=== PATIENT | female | born 1965 | race Caucasian/White ===

== ENCOUNTER 2021-10-23 15:11 | Inpatient (IN) | payer MEDICARE, MEDICAID, SELFPAY ==
--- NOTE | ~2021-10-23 | XR_ITS ---
EXAMINATION: XR FOOT, LEFT CLINICAL INFORMATION: Left foot pain COMPARISON: None TECHNIQUE: 3 views of the left foot. FINDINGS: The bones and soft tissues are normal. No fracture, erosion or periostitis. Alignment is anatomic. Joint spaces are maintained. No radiopaque foreign body or abnormal soft tissue calcification. XR/XR foot LT min 3V IMPRESSION: Normal left foot.
[2021-10-23 15:22] VITALS: BP 124/86; BP 135/63; PULSE 80; PULSE 84; RESP 18; TEMP 37.3; O2SAT 99; BMI 24.2
--- NOTE | 2021-10-23 16:00 | ED_ITS ---
HPI - Psych General Chief Complaint: Psychiatric Symptoms Stated Complaint: CRISIS,FROM [facility] W/SECTION 12 Source: patient Mode of arrival: ambulatory Limitations: no limitations History of Present Illness HPI Narrative: 56-year-old female history of depression presents to the ED for depression and suicidal ideation. Patient states due to her depression she has not been able to go to work. Patient states she is too depressed to go to work. Patient states also having suicidal ideation but no plan. Patient states she is compliant with her psychiatric medication but they are not helping. Related Data Home Medications Medication Instructions Recorded Confirmed bupropion HCl 150 mg 24 hr tablet, 150 mg PO QAM 10/23/21 10/23/21 extended release hydroxyzine HCl 25 mg tablet 25 mg PO BID PRN 10/23/21 10/23/21 quetiapine 50 mg tablet 50 mg PO BEDTIME 10/23/21 10/23/21 quetiapine 50 mg tablet 50 mg PO DAILY PRN 10/23/21 10/23/21 Allergies Allergy/AdvReac Type Severity Reaction Status Date / Time No Known Allergies Allergy Verified 10/23/21 17:36 Review of Systems Review of Systems: depression and suicidal Yes all other systems are reviewed and are negative [facility] Social History Social History Advance Directives: No Advance Directives Information Provided: No Physical Exam Vital Signs: Vital Signs: Last Vital Signs Temp 99.2 F 10/23/21 15:22 Pulse 80 10/23/21 15:22 Resp 18 10/23/21 15:22 BP 135/63 10/23/21 15:22 Pulse Ox 99 10/23/21 15:22 BMI result Body Mass Index 24.2 Const: General: cooperative, healthy appearing, comfortable, no acute distress, well developed, alert, awake and Physically active; No acute distress Orientation/consciousness: oriented to time and patient oriented x3 HEENT: Head: Yes normal to inspection, Yes No palpable skull fracture present, Yes normocephalic, Yes atraumatic and No abrasion Eyes: General: appearance normal, both eyes and all related structures Neck: Neck: Yes normal visual inspection, Yes full ROM, Yes no lymphadenopathy, Yes no meningeal signs, Yes trachea midline, Yes supple, No anterior neck swelling and No tender Chest: Chest palpation & inspection: normal inspection of the chest and normal palpation of entire chest wall Resp: Effort & Inspection: normal respiratory effort and able to speak in complete sentences Auscultation: clear to auscultation bilaterally Cardio: Jugular venous distension: no JVD Heart sounds: S1 normal heart sound present and S2 normal heart sound present GI: Inspection: Yes normal to inspection and No abdominal wall ecchymosis Palpation (GI): Soft to palpation, not firm, nontender, no guarding and not rigid : General: No CVA tenderness and Yes no CVA tenderness Back/Spine/Pelvis: Back: no CVA tenderness, No CVA tenderness and No back tenderness Skin: General skin exam: no rashes or lesions noted and elasticity normal Neuro: General: oriented to time, patient oriented x3, gait normal, no meningeal signs and CN's II-XI intact bilaterally Cranial nerves: Yes CN's II-XII intact bilaterally Extrem: General: Yes normal to inspection and Yes full ROM Psych: Appearance: grossly normal, well kempt and not disheveled Course Course Course Narrative: patient brought here under Section 12 for woken from pressure med is seen and the immediately. Reevaluation(s) Reevaluation #1: patient awaiting lab evaluation. Patient waiting [facility] evaluation. Time: 17:41 [facility] - Psych Lab Data Labs: Lab Results 10/23/21 10/23/21 Range/Units 16:05 16:06 Urine Opiates Screen Not Detected (Not Detect) Urine Fentanyl Screen Not Detected (Not Detect) Ur Barbiturates Screen Not Detected (Not Detect) Ur Phencyclidine Scrn Not Detected (Not Detect) Ur Amphetamines Screen Not Detected (Not Detect) U Benzodiazepines Scrn Not Detected (Not Detect) Urine Cocaine Screen Not Detected (Not Detect) U Marijuana (THC) Screen Not Detected (Not Detect) COVID-19 ([facility]) Negative (Negative) COVID-19 Clin Com See Note Discharge Plan Discharge Clinical Impression: Depression Patient Disposition: Still a Patient Prescriptions: No Action hydroxyzine HCl 25 mg Tablet 25 mg PO BID PRN (Reason: Anxiety) 0RF bupropion HCl 150 mg Tablet Extended Release 24 Hr 150 mg PO QAM 0RF quetiapine 50 mg Tablet 50 mg PO BEDTIME 0RF Rx Instructions: take 1-2 tabs at bedtime quetiapine 50 mg Tablet 50 mg PO DAILY PRN (Reason: Anxiety) 0RF
[2021-10-23 16:28] LABS: Amphetamine Screen Urine Not Detected (Not Detect); Barbiturates, Urine Not Detected (Not Detect); Benzodiazepines Screen Urine Not Detected (Not Detect); Cannabinoid Screen Urine Not Detected (Not Detect); Cocaine Screen Urine Not Detected (Not Detect); Fentanyl, urine Not Detected (Not Detect); Opiate Screen Urine Not Detected (Not Detect); Phencyclidine Screen Urine Not Detected (Not Detect)
[2021-10-23 16:29] LABS: COVID-19 Test Negative (Negative)
[2021-10-23 17:55] LABS: MANUAL DIFF FLAG NO
[2021-10-23 17:59] LABS: Basophils Percent Auto 0.5 % (0-2); Eosinophils Absolute Auto 0.1 X10*3/uL (0.0-0.4); Eosinophils Percent Auto 0.8 % (0-4); Hematocrit 44.9 % (37.0-47.0); Hemoglobin 15.3 g/dl (12.0-16.0); Imm Gran Abs Auto 0.02 X10*3/uL (0.00-0.03); Imm Gran Pct Auto 0.2 % (0.0-0.4); Lymphocytes Absolute Auto 2.4 X10*3/uL (1.2-4.9); Lymphocytes Percent Auto 28.7 % (20-40); Mean Corpuscular HGB Conc 34.1 g/dl (31.0-35.0); Mean Corpuscular Hemoglobin 31.2 pg (27.0-33.0); Mean Corpuscular Volume 91.6 fL (80.0-98.0); Mean Platelet Volume 9.6 fL (9.4-12.3); Monocytes Absolute Auto 0.4 X10*3/uL (0.1-1.2); Monocytes Percent Auto 5.2 % (2-11); Neutrophils Absolute Auto 5.3 x10*3/uL (2.0-8.3); Neutrophils Percent Auto 64.6 % (45-73); Platelet Count 292 X10*3/uL (160-400); Red Cell Distribution Width 11.5 % (11.0-16.0); White Blood Count 8.3 X10*3/uL (4.8-10.8)
[2021-10-23 18:09] LABS: Ethanol < 10 mg/dL
[2021-10-23 18:11] LABS: Alanine Aminotransferase 19 U/L (0-31); Albumin Level 4.6 g/dL (3.5-5.0); Alkaline Phosphatase 78 U/L (39-117); Anion Gap 12 (12-20); Aspartate Amino Transferase 17 U/L (5-31); Bilirubin Total 0.7 mg/dL (0.0-1.0); Blood Urea Nitrogen 14 mg/dL (9-16); Calcium 10.3 mg/dL (8.4-10.2); Carbon Dioxide 30 mmol/L (22-29); Chloride 101 mmol/L (96-108); Creatinine Clr Calc Pharmacy 71.7; Estimated Glomerular Filt Rate > 60; Glucose Random 135 mg/dL (60-115); Sodium 139 mmol/L (135-145); Total Protein 7.6 g/dL (6.5-8.0)
[2021-10-23] MEDS: QUEtiapine Fumarate 50 MG TABLET PO (20:52)
--- NOTE | 2021-10-24 | ECG_ITS ---
Test Reason : MED CLEARANCE Blood Pressure : / mmHG Vent. Rate : 077 BPM Atrial Rate : 077 BPM P-R Int : 198 ms QRS Dur : 070 ms QT Int : 350 ms P-R-T Axes : 079 100 049 degrees QTc Int : 396 ms Normal sinus rhythm Rightward axis Borderline ECG No previous ECGs available Referred By: Deven Gutierrez Electronically Signed By:Teo Sierra
[2021-10-24 06:36] VITALS: BP 117/63; PULSE 74; RESP 16; TEMP 36.7; O2SAT 96
--- NOTE | 2021-10-24 06:39 | PC.NURSE ---
Patient slept through the night, no distress observed/reported, medication compliant, Disposition per [facility] is section 12 Inpatient Bed Search, behavior pleasant and non concerning, VSS, will continue to monitor
[2021-10-24 08:13] VITALS: BP 117/65; PULSE 73; RESP 17; O2SAT 97
[2021-10-24] MEDS: buPROPion HCl XL 150 MG TAB.ER.24H PO (08:31)
[2021-10-24 19:23] VITALS: BMI 23.8
[2021-10-24 19:30] VITALS: BP 126/73; PULSE 94; TEMP 37
[2021-10-24] MEDS: Acetaminophen 325 MG TABLET 650 MG PO (21:31)
[2021-10-24] MEDS: QUEtiapine Fumarate 50 MG TABLET PO ×2 (21:49→21:50)
[2021-10-25 06:00] VITALS: BP 114/62; PULSE 78; RESP 16; TEMP 36.8; O2SAT 98
[2021-10-25] MEDS: buPROPion HCl XL 150 MG TAB.ER.24H PO (09:08)
[2021-10-25 10:29] LABS: Magnesium 2.2 mg/dL (1.6-2.6)
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
[2021-10-25 10:41] LABS: Free T4 (Free Thyroxine) 0.95 ng/dL (0.71-1.85); Thyroid Stimulating Hormone 1.35 uIU/mL (0.32-4.0)
[2021-10-25 11:01] LABS: Folate 13.6 ng/mL (> or = 4.0); Vitamin B12 874 pg/mL (200-900)
[2021-10-25 18:00] VITALS: BP 104/61; PULSE 79; RESP 16; TEMP 36.9; O2SAT 98
[2021-10-25] MEDS: QUEtiapine Fumarate 50 MG TABLET PO (21:23)
[2021-10-25] MEDS: traZODone HCL 50 MG TABLET PO (21:24)
[2021-10-26 06:00] VITALS: BP 126/74; PULSE 88; RESP 14; TEMP 36.8; O2SAT 96
[2021-10-26] MEDS: buPROPion HCl XL 300 MG TAB.ER.24H PO (09:25)
--- NOTE | 2021-10-26 10:42 | HO.PSYCHPN ---
Subjective Subjective Date of Service: 10/26/21 Reason For Visit: Depression,SI Interim History: Patient stayed in bed all day today and reports she does not have much energy and remains depressed. She does not notice any benefit or side effect from increased dose of Wellbutrin and agrees to further increase. She remains very ambivalent about T MS but is willing to continue and considerate. She also talked about discharge today not really wanted to be in the hospital. She shared how hard it is to not have a job and to struggle against Her depression. She says I want help with the house And explains that she Does not want to leave the house and go on public, because she is embarrassed she does not have a job. Chain Saw Mechanic strongly encouraged patient to remain on the unit and continue treatment since at this point she remains depressed to the point where it is difficult for her to function. Patient said she will consider Mental Status Exam Mental Status Exam Narrative: Pt is alert and oriented; behavior is cooperative, distracted, slow moving; patient is not in distress; dressed in casual attire with unkempt hair but adequate hygiene; mood is described as depressed and affect congruent, downcast; avoids eye contact; Speech is lowered rate and softer volume; psychomotor retardation present; thought process is goal directed but can be a little tangential and a little disorganized; Thought content is on how hard? life is now with worse depression, difficulty of ever getting another job and tx; TC mostly otherwise pertinent to relevant topics; no overt delusional content or paranoid ideations or grandiosity expressed; Intermittent, passive SI; no HI. There is no evidence of perceptual disturbance and denies AVH;? Patients insight and judgment are impaired. Diagnostics Vital Signs (24Hr): Vital Signs - 24 hr 10/25/21 18:00 Temperature 98.4 F Pulse Rate 79 Respiratory Rate 16 Blood Pressure 104/61 Pulse Oximetry 98 BMI result Body Mass Index 23.8 Labs Results: 10/23/21 17:50 10/23/21 17:50 Labs: Laboratory Results - last 48 hr 10/25/21 10/25/21 08:04 08:04 Magnesium 2.2 Vitamin B12 874 Folate 13.6 TSH 1.35 Free T4 0.95 Medications Medications Current Medications Acetaminophen (Acetaminophen 325 Mg Tablet) 650 mg PO Q6H PRN PRN Reason: Headache/Pain Mild Scale (1-3) Last Admin: 10/24/21 21:31 Dose: 650 mg Documented by: Al Hydroxide/Mg Hydroxide (Magnesium Hydrox/Alum Hydrox 30 Ml Oral.Susp) 30 ml PO Q6H PRN PRN Reason: Heartburn/Nausea Bupropion HCl (Bupropion Hcl Xl 300 Mg Tab.Er.24h) 300 mg PO DAILY LANDY Last Admin: 10/26/21 09:25 Dose: 300 mg Documented by: Hydroxyzine HCl (Hydroxyzine Hcl 25 Mg Tablet) 25 mg PO BID PRN PRN Reason: Anxiety Magnesium Hydroxide (Milk Of Magnesia 30 Ml Oral.Susp) 30 ml PO DAILY PRN PRN Reason: Constipation Quetiapine Fumarate (Quetiapine Fumarate 50 Mg Tablet) 50 mg PO BEDTIME LANDY Last Admin: 10/25/21 21:23 Dose: 50 mg Documented by: Quetiapine Fumarate (Quetiapine Fumarate 50 Mg Tablet) 50 mg PO DAILY PRN PRN Reason: Anxiety Trazodone HCl (Trazodone Hcl 50 Mg Tablet) 50 mg PO BEDTIME PRN PRN Reason: Insomnia Last Admin: 10/25/21 21:24 Dose: 50 mg Documented by: Allergies Allergies Allergy/AdvReac Type Severity Reaction Status Date / Time No Known Allergies Allergy Verified 10/23/21 17:36 Assessment & Plan Assessment & Plan (1) MDD (major depressive disorder), recurrent episode, severe: Status: Acute Code(s): F33.2 - Major depressive disorder, recurrent severe without psychotic features Plan Patient is a 56-year-old female with long history of refractory depression, poorly treated with past medication trials who presents for worsening depression in the face of her mother going to a skilled nursing. Patient is a bit of a scattered historian. Formulation: -patient reports depression for decades which she says has never been treated very well with medication. She currently presents as severely depressed with psychomotor retardation. Patient has some minimal support in the community including a therapist. Regarding family psychiatric history patient says that her father was very quiet which leans towards possible genetic contribution. Patient's thought process is a little distracted and she sometimes brings up thoughts unrelated to public relations writer's question; at this time, public relations writer interprets this as due to diminished concentration, distractedness and negative symptoms of depression Plan: CV; 3 day notice in Q 15 minute checks Increased to Wellbutrin XL to 450mg daily; Patient agrees and has tolerated lower doses; wants to see if this can work or not Continue Seroquel 50 mg q.h.s. TMS consult placed with Dr. [facility] course: 10/26 Patient remains depressed and has been in bed all day. Agrees to increased Wellbutrin and will still consider T MS. She is it ambivalent about all treatment however and talks about discharging tomorrow Past medication trials: Zoloft Trazodone Paxil: Patient reports horrible delirium when getting off it Celexa Maybe Cymbalta Maybe Effexor Never tried: [employer], mirtazapine, TCAs, MAOI's, ECT, TMS, I spent minutes with the patient and/or on the patient floor today, greater than?50% of which was spent counseling/coordinating care. Patient educated on: diagnosis and medication risk/benefits Informed Consent: understands Reason for contiued inpatient stay Substantial Risk for: rapid decompensation and med/psych decompensation
[2021-10-26 18:00] VITALS: BP 106/56; PULSE 79; TEMP 36.9; O2SAT 96
[2021-10-26] MEDS: QUEtiapine Fumarate 50 MG TABLET PO (20:52)
[2021-10-26] MEDS: traZODone HCL 50 MG TABLET PO (20:52)
--- NOTE | 2021-10-27 | ECG_ITS ---
Test Reason : ect prep Blood Pressure : / mmHG Vent. Rate : 081 BPM Atrial Rate : 081 BPM P-R Int : 204 ms QRS Dur : 076 ms QT Int : 344 ms P-R-T Axes : 014 095 024 degrees QTc Int : 399 ms Normal sinus rhythm Rightward axis Borderline ECG When compared with ECG of 24-OCT-2021 16:15, No significant change was found Referred By: Abiodun Green Electronically Signed By:Teo Sierra
[2021-10-27 06:00] VITALS: BP 98/55; PULSE 78; RESP 14; TEMP 36.6; O2SAT 97
[2021-10-27] MEDS: buPROPion HCl XL 150 MG TAB.ER.24H 450 MG PO (08:33)
--- NOTE | 2021-10-27 10:37 | HO.PSYCHPN ---
Subjective Subjective Date of Service: 10/27/21 Reason For Visit: Depression,SI Interim History: Patient remains depressed and isolating in her room. Does not notice any difference from increased Wellbutrin; patient is open to ECT and agrees to pursue this course of treatment.. Denies SI. Mental Status Exam Mental Status Exam Narrative: Pt is alert and oriented; behavior is cooperative, distracted, slow moving; patient is not in distress; dressed in casual attire with unkempt hair but adequate hygiene; mood is described as depressed and affect congruent, downcast; avoids eye contact; intermittent grimace. Speech is lowered rate and softer volume; psychomotor retardation present; thought process is goal directed but can be a little tangential and a little disorganized; Thought content is on how hard? life is now with worse depression, difficulty of ever getting another job and tx; TC mostly otherwise pertinent to relevant topics; no overt delusional content or paranoid ideations or grandiosity expressed; Intermittent, passive SI; no HI. There is no evidence of perceptual disturbance and denies AVH;? Patients insight and judgment are impaired. Diagnostics Vital Signs (24Hr): Vital Signs - 24 hr 10/26/21 18:00 10/27/21 06:00 Temperature 98.5 F 97.9 F Pulse Rate 79 78 Respiratory Rate 14 Blood Pressure 106/56 L 98/55 L Pulse Oximetry 96 97 BMI result Body Mass Index 23.8 Labs Results: 10/23/21 17:50 10/23/21 17:50 Labs: Laboratory Results - last 48 hr 10/25/21 10/25/21 08:04 08:04 Vitamin B12 874 Folate 13.6 TSH 1.35 Free T4 0.95 Medications Medications Current Medications Acetaminophen (Acetaminophen 325 Mg Tablet) 650 mg PO Q6H PRN PRN Reason: Headache/Pain Mild Scale (1-3) Last Admin: 10/24/21 21:31 Dose: 650 mg Documented by: Al Hydroxide/Mg Hydroxide (Magnesium Hydrox/Alum Hydrox 30 Ml Oral.Susp) 30 ml PO Q6H PRN PRN Reason: Heartburn/Nausea Bupropion HCl (Bupropion Hcl Xl 150 Mg Tab.Er.24h) 450 mg PO DAILY LANDY Last Admin: 10/27/21 08:33 Dose: 450 mg Documented by: Hydroxyzine HCl (Hydroxyzine Hcl 25 Mg Tablet) 25 mg PO BID PRN PRN Reason: Anxiety Magnesium Hydroxide (Milk Of Magnesia 30 Ml Oral.Susp) 30 ml PO DAILY PRN PRN Reason: Constipation Quetiapine Fumarate (Quetiapine Fumarate 50 Mg Tablet) 50 mg PO BEDTIME LANDY Last Admin: 10/26/21 20:52 Dose: 50 mg Documented by: Quetiapine Fumarate (Quetiapine Fumarate 50 Mg Tablet) 50 mg PO DAILY PRN PRN Reason: Anxiety Trazodone HCl (Trazodone Hcl 50 Mg Tablet) 50 mg PO BEDTIME PRN PRN Reason: Insomnia Last Admin: 10/26/21 20:52 Dose: 50 mg Documented by: Allergies Allergies Allergy/AdvReac Type Severity Reaction Status Date / Time No Known Allergies Allergy Verified 10/23/21 17:36 Assessment & Plan Assessment & Plan (1) MDD (major depressive disorder), recurrent episode, severe: Status: Acute Code(s): F33.2 - Major depressive disorder, recurrent severe without psychotic features Plan Patient is a 56-year-old female with long history of refractory depression, poorly treated with past medication trials who presents for worsening depression in the face of her mother going to a intermediate. Patient is a bit of a scattered historian. Formulation: -patient reports depression for decades which she says has never been treated very well with medication. She currently presents as severely depressed with psychomotor retardation. Patient has some minimal support in the community including a therapist. Regarding family psychiatric history patient says that her father was very quiet which leans towards possible genetic contribution. Patient's thought process is a little distracted and she sometimes brings up thoughts unrelated to keno writer / runner's question; at this time, keno writer / runner interprets this as due to diminished concentration, distractedness and negative symptoms of depression. Discussed case with patient's former outpatient psychiatrist Dr. Thomson who wonders if patient may ASD or be schizotypal; patient has odd behavior at baseline. Numerous medication trials including Depakote and atypicals. Patient may have had some psychotic symptoms in the past; has gotten paranoid at times. Patient had episode where she struggle to interact with her ailing and demented father appropriately, trying to get him to dance and getting angry and swearing at him. Plan: CV; 3 day notice in Q 15 minute checks Increased to Wellbutrin XL to 450mg daily; Patient agrees and has tolerated lower doses; wants to see if this can work or not Continue Seroquel 50 mg q.h.s. ECT ordered for 11/01/2021 -ECT clearance ordered -EKG ordered Hospital course: 10/26 Patient remains depressed and has been in bed all day. Agrees to increased Wellbutrin and will still consider T MS. She is it ambivalent about all treatment however and talks about discharging tomorrow 10/27 remains depressed; patient is open to ECT as she does not think that she is stable enough to go home and get herself to T MS daily Past medication trials: Zoloft: maybe a little helpful Trazodone Citalopram: No effect Paxil: Unclear if helpful; patient did not want to go higher; Patient reports horrible delirium when getting off it Fluoxetine: No effect Wellbutrin: Some irritability when titrated Ritalin/Adderall: No positive effect; increased anxiety Depakote; no effect Lamictal; maybe lowered irritability but patient stopped it not wanting to take it further Risperdal: No effect Zyprexa: Weight gain, no effect Abilify: No effect Never tried: [place], mirtazapine, TCAs, MAOI's, ECT, TMS, I spent minutes with the patient and/or on the patient floor today, greater than?50% of which was spent counseling/coordinating care. Patient educated on: diagnosis and medication risk/benefits Informed Consent: understands Reason for contiued inpatient stay Substantial Risk for: inability to function and rapid decompensation
[2021-10-27] MEDS: traZODone HCL 50 MG TABLET PO (21:09)
[2021-10-27] MEDS: QUEtiapine Fumarate 50 MG TABLET PO (21:09)
[2021-10-28 06:00] VITALS: BP 102/57; PULSE 82; RESP 16; TEMP 36.7; O2SAT 96
[2021-10-28] MEDS: buPROPion HCl XL 150 MG TAB.ER.24H 450 MG PO (08:10)
[2021-10-28] MEDS: Acetaminophen 325 MG TABLET 650 MG PO ×2 (11:09→21:50)
--- NOTE | 2021-10-28 16:35 | HO.PSYCHPN ---
Subjective Subjective Date of Service: 10/28/21 Reason For Visit: Depression,SI Interim History: Patient seen and discussed. Remains depressed and isolated. She is having ambivalence and indecisive. She is isolative. She stays in her room. Says it is hard to deal with reality . She is ruminative. Low motivation. Anhedonia. No SI. Review of Systems Review of Systems depression and suicidal Yes all other systems are reviewed and are negative Mental Status Exam Mental Status Exam Narrative: Pt is alert and oriented; behavior is cooperative, distracted, slow moving; patient is not in distress; dressed in casual attire with unkempt hair but adequate hygiene; mood is described as depressed and affect congruent, downcast; avoids eye contact; Speech is lowered rate and softer volume; psychomotor retardation present; thought process is goal directed but can be a little tangential and a little disorganized; Thought content is on how hard? life is now with worse depression, difficulty of ever getting another job and tx; TC mostly otherwise pertinent to relevant topics; no overt delusional content or paranoid ideations or grandiosity expressed; Intermittent, passive SI; no HI. There is no evidence of perceptual disturbance and denies AVH;? Patients insight and judgment are impaired. Diagnostics Vital Signs (24Hr): Vital Signs - 24 hr 10/28/21 06:00 Temperature 98.0 F Pulse Rate 82 Respiratory Rate 16 Blood Pressure 102/57 L Pulse Oximetry 96 BMI result Body Mass Index 23.8 Labs Results: 10/23/21 17:50 10/23/21 17:50 Medications Medications Current Medications Acetaminophen (Acetaminophen 325 Mg Tablet) 650 mg PO Q6H PRN PRN Reason: Headache/Pain Mild Scale (1-3) Last Admin: 10/28/21 11:09 Dose: 650 mg Documented by: Al Hydroxide/Mg Hydroxide (Magnesium Hydrox/Alum Hydrox 30 Ml Oral.Susp) 30 ml PO Q6H PRN PRN Reason: Heartburn/Nausea Bupropion HCl (Bupropion Hcl Xl 150 Mg Tab.Er.24h) 450 mg PO DAILY LANDY Last Admin: 10/28/21 08:10 Dose: 450 mg Documented by: Hydroxyzine HCl (Hydroxyzine Hcl 25 Mg Tablet) 25 mg PO BID PRN PRN Reason: Anxiety Magnesium Hydroxide (Milk Of Magnesia 30 Ml Oral.Susp) 30 ml PO DAILY PRN PRN Reason: Constipation Quetiapine Fumarate (Quetiapine Fumarate 50 Mg Tablet) 50 mg PO BEDTIME LANDY Last Admin: 10/27/21 21:09 Dose: 50 mg Documented by: Quetiapine Fumarate (Quetiapine Fumarate 50 Mg Tablet) 50 mg PO DAILY PRN PRN Reason: Anxiety Trazodone HCl (Trazodone Hcl 50 Mg Tablet) 50 mg PO BEDTIME PRN PRN Reason: Insomnia Last Admin: 10/27/21 21:09 Dose: 50 mg Documented by: Allergies Allergies Allergy/AdvReac Type Severity Reaction Status Date / Time No Known Allergies Allergy Verified 10/23/21 17:36 Assessment & Plan Assessment & Plan (1) MDD (major depressive disorder), recurrent episode, severe: Status: Acute Code(s): F33.2 - Major depressive disorder, recurrent severe without psychotic features Plan Patient is a 56-year-old female with long history of refractory depression, poorly treated with past medication trials who presents for worsening depression in the face of her mother going to a [facility]. Patient is a bit of a scattered historian. Formulation: -patient reports depression for decades which she says has never been treated very well with medication. She currently presents as severely depressed with psychomotor retardation. Patient has some minimal support in the community including a therapist. Regarding family psychiatric history patient says that her father was very quiet which leans towards possible genetic contribution. Patient's thought process is a little distracted and she sometimes brings up thoughts unrelated to typewriters functional tester's question; at this time, typewriters functional tester interprets this as due to diminished concentration, distractedness and negative symptoms of depression Plan: CV; 3 day notice in Q 15 minute checks Increased to Wellbutrin XL to 450mg daily; Patient agrees and has tolerated lower doses; wants to see if this can work or not Continue Seroquel 50 mg q.h.s. TMS consult placed with Dr. Ogden [facility] course: 10/26 Patient remains depressed and has been in bed all day. Agrees to increased Wellbutrin and will still consider T MS. She is it ambivalent about all treatment however and talks about discharging tomorrow Past medication trials: Zoloft Trazodone Paxil: Patient reports horrible delirium when getting off it Celexa Maybe Cymbalta Maybe Effexor Never tried: [place], mirtazapine, TCAs, MAOI's, ECT, TMS 5/28 Continue current treatment plan., I spent minutes with the patient and/or on the patient floor today, greater than?50% of which was spent counseling/coordinating care. Reason for contiued inpatient stay Substantial Risk for: harm to self and inability to function
[2021-10-28 20:20] VITALS: BP 114/58; PULSE 87; TEMP 37.1
[2021-10-28] MEDS: QUEtiapine Fumarate 50 MG TABLET PO (21:23)
[2021-10-28] MEDS: traZODone HCL 50 MG TABLET PO (21:34)
[2021-10-29 06:00] VITALS: BP 104/56; PULSE 84; RESP 16; TEMP 36.8; O2SAT 96
[2021-10-29] MEDS: buPROPion HCl XL 150 MG TAB.ER.24H 450 MG PO (08:32)
[2021-10-29] MEDS: Acetaminophen 325 MG TABLET 650 MG PO ×2 (08:41→16:55)
--- NOTE | 2021-10-29 12:00 | P.PNPSI_ITS ---
Subjective Subjective Date of Service: 10/29/21 Reason For Visit: Depression,SI Interim History: Patient seen and discussed. Remains depressed and isolated. Feels overwhelmed because of her job situation and uncertainty about returning there. Is going to call her employer tomorrow when the distribution warehouse manager is back so she can fill out [facility] paperwork. She is complaining of left foot pain. Xray ordered and it was normal with no evidence of fractures. She is more agreeable to starting ECT. She s tays in her room. She is ruminative. Low motivation. Anhedonia. No SI. Review of Systems Review of Systems depression and suicidal Yes all other systems are reviewed and are negative Mental Status Exam Mental Status Exam Narrative: Pt is alert and oriented; behavior is cooperative, distracted, slow moving; patient is not in distress; dressed in casual attire with unkempt hair but adequate hygiene; mood is described as depressed and affect congruent, downcast; avoids eye contact; Speech is lowered rate and softer volume; psychomotor retardation present; thought process is goal directed but can be a little tangential and a little disorganized; Thought content is on how hard? life is now with worse depression, difficulty of ever getting another job and tx; TC mostly otherwise pertinent to relevant topics; no overt delusional content or paranoid ideations or grandiosity expressed; Intermittent, passive SI; no HI. There is no evidence of perceptual disturbance and denies AVH;? Patients insight and judgment are impaired. Diagnostics Vital Signs (24Hr): Vital Signs - 24 hr 10/28/21 20:20 10/29/21 06:00 Temperature 98.7 F 98.2 F Pulse Rate 87 84 Respiratory Rate 16 Blood Pressure 114/58 L 104/56 L Pulse Oximetry 96 BMI result Body Mass Index 23.8 Labs Results: 10/23/21 17:50 10/23/21 17:50 Imaging Radiology Impressions: ITS Impressions Foot X-Ray 10/29/21 10:18 IMPRESSION: Normal left foot. Medications Medications Current Medications Acetaminophen (Acetaminophen 325 Mg Tablet) 650 mg PO Q6H PRN PRN Reason: Headache/Pain Mild Scale (1-3) Last Admin: 10/29/21 08:41 Dose: 650 mg Documented by: Al Hydroxide/Mg Hydroxide (Magnesium Hydrox/Alum Hydrox 30 Ml Oral.Susp) 30 ml PO Q6H PRN PRN Reason: Heartburn/Nausea Bupropion HCl (Bupropion Hcl Xl 150 Mg Tab.Er.24h) 450 mg PO DAILY LANDY Last Admin: 10/29/21 08:32 Dose: 450 mg Documented by: Hydroxyzine HCl (Hydroxyzine Hcl 25 Mg Tablet) 25 mg PO BID PRN PRN Reason: Anxiety Magnesium Hydroxide (Milk Of Magnesia 30 Ml Oral.Susp) 30 ml PO DAILY PRN PRN Reason: Constipation Quetiapine Fumarate (Quetiapine Fumarate 50 Mg Tablet) 50 mg PO BEDTIME LANDY Last Admin: 10/28/21 21:23 Dose: 50 mg Documented by: Quetiapine Fumarate (Quetiapine Fumarate 50 Mg Tablet) 50 mg PO DAILY PRN PRN Reason: Anxiety Trazodone HCl (Trazodone Hcl 50 Mg Tablet) 50 mg PO BEDTIME PRN PRN Reason: Insomnia Last Admin: 10/28/21 21:34 Dose: 50 mg Documented by: Allergies Allergies Allergy/AdvReac Type Severity Reaction Status Date / Time No Known Allergies Allergy Verified 10/23/21 17:36 Assessment & Plan Assessment & Plan (1) MDD (major depressive disorder), recurrent episode, severe: Status: Acute Code(s): F33.2 - Major depressive disorder, recurrent severe without psychotic features Plan Patient is a 56-year-old female with long history of refractory depression, poorly treated with past medication trials who presents for worsening depression in the face of her mother going to a [facility]. Patient is a bit of a scattered historian. Formulation: -patient reports depression for decades which she says has never been treated very well with medication. She currently presents as severely depressed with psychomotor retardation. Patient has some minimal support in the community including a therapist. Regarding family psychiatric history patient says that her father was very quiet which leans towards possible genetic contribution. Patient's thought process is a little distracted and she sometimes brings up thoughts unrelated to scientific writer's question; at this time, scientific writer interprets this as due to diminished concentration, distractedness and negative symptoms of depression Plan: CV; 3 day notice in Q 15 minute checks Increased to Wellbutrin XL to 450mg daily; Patient agrees and has tolerated lower doses; wants to see if this can work or not Continue Seroquel 50 mg q.h.s. TMS consult placed with Dr. Ogden [facility] course: 10/26 Patient remains depressed and has been in bed all day. Agrees to increased Wellbutrin and will still consider T MS. She is it ambivalent about all treatment however and talks about discharging tomorrow Past medication trials: Zoloft Trazodone Paxil: Patient reports horrible delirium when getting off it Celexa Maybe Cymbalta Maybe Effexor Never tried: [place], mirtazapine, TCAs, MAOI's, ECT, TMS 10/28 Continue current treatment plan. 10/29 Continue current treatment plan. Foot Xray normal. Encourage out of room and participation in milieu. ECT a consideration. I spent minutes with the patient and/or on the patient floor today, greater than?50% of which was spent counseling/coordinating care. Reason for contiued inpatient stay Substantial Risk for: inability to function and rapid decompensation
[2021-10-29 16:10] VITALS: BP 111/61; PULSE 81; TEMP 37.2
[2021-10-29] MEDS: QUEtiapine Fumarate 50 MG TABLET PO (21:11)
[2021-10-29] MEDS: Ibuprofen 400 MG TABLET PO (21:11)
[2021-10-29] MEDS: traZODone HCL 50 MG TABLET PO (21:12)
[2021-10-30 06:00] VITALS: BP 100/56; PULSE 86; RESP 18; TEMP 36.9; O2SAT 96
[2021-10-30] MEDS: buPROPion HCl XL 150 MG TAB.ER.24H 450 MG PO (08:17)
--- NOTE | 2021-10-30 12:02 | HO.PSYCHPN ---
Subjective Subjective Date of Service: 10/30/21 Reason For Visit: Depression,SI Interim History: Patient seen and discussed. Remains depressed and isolated. Patient is more agreeable to ECT. Asked about the treatments and what they look like. Read educational material on ECT. She continues feeling overwhelmed. Mostly isolating in her room. Continues dysphoric, helpless with low motivation and anhedonia. No SI. Review of Systems Review of Systems depression and suicidal Yes all other systems are reviewed and are negative Mental Status Exam Mental Status Exam Narrative: Pt is alert and oriented; behavior is cooperative, distracted, slow moving; patient is not in distress; dressed in casual attire with unkempt hair but adequate hygiene; mood is described as depressed and affect congruent, downcast; avoids eye contact; Speech is lowered rate and softer volume; psychomotor retardation present; thought process is goal directed but can be a little tangential and a little disorganized; Thought content is on how hard? life is now with worse depression, difficulty of ever getting another job and tx; TC mostly otherwise pertinent to relevant topics; no overt delusional content or paranoid ideations or grandiosity expressed; Intermittent, passive SI; no HI. There is no evidence of perceptual disturbance and denies AVH;? Patients insight and judgment are impaired. Diagnostics Vital Signs (24Hr): Vital Signs - 24 hr 10/29/21 16:10 10/30/21 06:00 Temperature 98.9 F 98.4 F Pulse Rate 81 86 Respiratory Rate 18 Blood Pressure 111/61 100/56 L Pulse Oximetry 96 BMI result Body Mass Index 23.8 Labs Results: 10/23/21 17:50 10/23/21 17:50 Imaging Radiology Impressions: ITS Impressions Foot X-Ray 10/29/21 10:18 IMPRESSION: Normal left foot. Medications Medications Current Medications Acetaminophen (Acetaminophen 325 Mg Tablet) 650 mg PO Q6H PRN PRN Reason: Headache/Pain Mild Scale (1-3) Last Admin: 10/29/21 16:55 Dose: 650 mg Documented by: Al Hydroxide/Mg Hydroxide (Magnesium Hydrox/Alum Hydrox 30 Ml Oral.Susp) 30 ml PO Q6H PRN PRN Reason: Heartburn/Nausea Bupropion HCl (Bupropion Hcl Xl 150 Mg Tab.Er.24h) 450 mg PO DAILY LANDY Last Admin: 10/30/21 08:17 Dose: 450 mg Documented by: Hydroxyzine HCl (Hydroxyzine Hcl 25 Mg Tablet) 25 mg PO BID PRN PRN Reason: Anxiety Ibuprofen (Ibuprofen 400 Mg Tablet) 400 mg PO QID PRN PRN Reason: Pain, Moderate (Pain Scale 4-6 Last Admin: 10/29/21 21:11 Dose: 400 mg Documented by: Magnesium Hydroxide (Milk Of Magnesia 30 Ml Oral.Susp) 30 ml PO DAILY PRN PRN Reason: Constipation Quetiapine Fumarate (Quetiapine Fumarate 50 Mg Tablet) 50 mg PO BEDTIME LANDY Last Admin: 10/29/21 21:11 Dose: 50 mg Documented by: Quetiapine Fumarate (Quetiapine Fumarate 50 Mg Tablet) 50 mg PO DAILY PRN PRN Reason: Anxiety Trazodone HCl (Trazodone Hcl 50 Mg Tablet) 50 mg PO BEDTIME PRN PRN Reason: Insomnia Last Admin: 10/29/21 21:12 Dose: 50 mg Documented by: Allergies Allergies Allergy/AdvReac Type Severity Reaction Status Date / Time No Known Allergies Allergy Verified 10/23/21 17:36 Assessment & Plan Assessment & Plan (1) MDD (major depressive disorder), recurrent episode, severe: Status: Acute Code(s): F33.2 - Major depressive disorder, recurrent severe without psychotic features Plan Patient is a 56-year-old female with long history of refractory depression, poorly treated with past medication trials who presents for worsening depression in the face of her mother going to a prison. Patient is a bit of a scattered historian. Formulation: -patient reports depression for decades which she says has never been treated very well with medication. She currently presents as severely depressed with psychomotor retardation. Patient has some minimal support in the community including a therapist. Regarding family psychiatric history patient says that her father was very quiet which leans towards possible genetic contribution. Patient's thought process is a little distracted and she sometimes brings up thoughts unrelated to commercial lines underwriter's question; at this time, commercial lines underwriter interprets this as due to diminished concentration, distractedness and negative symptoms of depression Plan: CV; 3 day notice in Q 15 minute checks Increased to Wellbutrin XL to 450mg daily; Patient agrees and has tolerated lower doses; wants to see if this can work or not Continue Seroquel 50 mg q.h.s. TMS consult placed with Dr. Ogden [facility] course: 10/26 Patient remains depressed and has been in bed all day. Agrees to increased Wellbutrin and will still consider T MS. She is it ambivalent about all treatment however and talks about discharging tomorrow Past medication trials: Zoloft Trazodone Paxil: Patient reports horrible delirium when getting off it Celexa Maybe Cymbalta Maybe Effexor Never tried: [place], mirtazapine, TCAs, MAOI's, ECT, TMS 10/28 Continue current treatment plan. 10/29 Continue current treatment plan. Foot Xray normal. Encourage out of room and participation in milieu. ECT a consideration. 10/30 Continue treatment plan. I spent minutes with the patient and/or on the patient floor today, greater than?50% of which was spent counseling/coordinating care. Reason for contiued inpatient stay Substantial Risk for: inability to function and rapid decompensation
[2021-10-30 21:15] VITALS: BP 99/70; PULSE 80; TEMP 37
[2021-10-30] MEDS: traZODone HCL 50 MG TABLET PO (21:20)
[2021-10-30] MEDS: QUEtiapine Fumarate 50 MG TABLET PO (21:21)
[2021-10-30] MEDS: Ibuprofen 400 MG TABLET PO (21:21)
[2021-10-31 06:25] VITALS: BP 115/64; PULSE 75; RESP 16; TEMP 36.4; O2SAT 97
[2021-10-31] MEDS: buPROPion HCl XL 150 MG TAB.ER.24H 450 MG PO (09:31)
[2021-10-31] MEDS: Ibuprofen 400 MG TABLET PO (09:39)
--- NOTE | 2021-10-31 10:33 | HO.PSYCHPN ---
Subjective Subjective Date of Service: 10/31/21 Reason For Visit: Depression,SI Interim History: Patient reports he continues to be depressed; she says her mood is so-so and that there is little to no symptom change from admission. She does not feel any benefit or side effects from increased Wellbutrin dose. Patient continues to agree to ECT starting tomorrow. Patient did attend a couple groups over the weekend however she otherwise remains isolated in bed for most of the day. Mental Status Exam Mental Status Exam Narrative: Pt is alert and oriented; behavior is cooperative, distracted, slow moving; patient is not in distress; dressed in casual attire with unkempt hair but adequate hygiene; mood is described as so-so and affect depressed, downcast; avoids eye contact; intermittent grimace. Speech is lowered rate and softer volume; psychomotor retardation present; thought process is goal directed but can be a little tangential; Thought content is on how hard? life is now with worse depression, difficulty of ever getting another job and tx; TC mostly otherwise pertinent to relevant topics; no overt delusional content or paranoid ideations or grandiosity expressed; Intermittent, passive SI; no HI. There is no evidence of perceptual disturbance and denies AVH;? Patients insight and judgment are impaired. Diagnostics Vital Signs (24Hr): Vital Signs - 24 hr 10/30/21 21:15 10/31/21 06:25 Temperature 98.6 F 97.6 F Pulse Rate 80 75 Respiratory Rate 16 Blood Pressure 99/70 115/64 Pulse Oximetry 97 BMI result Body Mass Index 23.8 Labs Results: 10/23/21 17:50 10/23/21 17:50 Imaging Radiology Impressions: ITS Impressions Foot X-Ray 10/29/21 10:18 IMPRESSION: Normal left foot. Medications Medications Current Medications Acetaminophen (Acetaminophen 325 Mg Tablet) 650 mg PO Q6H PRN PRN Reason: Headache/Pain Mild Scale (1-3) Last Admin: 10/29/21 16:55 Dose: 650 mg Documented by: Al Hydroxide/Mg Hydroxide (Magnesium Hydrox/Alum Hydrox 30 Ml Oral.Susp) 30 ml PO Q6H PRN PRN Reason: Heartburn/Nausea Bupropion HCl (Bupropion Hcl Xl 150 Mg Tab.Er.24h) 450 mg PO DAILY [facility] Last Admin: 10/31/21 09:31 Dose: 450 mg Documented by: Hydroxyzine HCl (Hydroxyzine Hcl 25 Mg Tablet) 25 mg PO BID PRN PRN Reason: Anxiety Ibuprofen (Ibuprofen 400 Mg Tablet) 400 mg PO QID PRN PRN Reason: Pain, Moderate (Pain Scale 4-6 Last Admin: 10/31/21 09:39 Dose: 400 mg Documented by: Magnesium Hydroxide (Milk Of Magnesia 30 Ml Oral.Susp) 30 ml PO DAILY PRN PRN Reason: Constipation Quetiapine Fumarate (Quetiapine Fumarate 50 Mg Tablet) 50 mg PO BEDTIME [facility] Last Admin: 10/30/21 21:21 Dose: 50 mg Documented by: Quetiapine Fumarate (Quetiapine Fumarate 50 Mg Tablet) 50 mg PO DAILY PRN PRN Reason: Anxiety Trazodone HCl (Trazodone Hcl 50 Mg Tablet) 50 mg PO BEDTIME PRN PRN Reason: Insomnia Last Admin: 10/30/21 21:20 Dose: 50 mg Documented by: Allergies Allergies Allergy/AdvReac Type Severity Reaction Status Date / Time No Known Allergies Allergy Verified 10/23/21 17:36 Assessment & Plan Assessment & Plan (1) MDD (major depressive disorder), recurrent episode, severe: Status: Acute Code(s): F33.2 - Major depressive disorder, recurrent severe without psychotic features Plan Patient is a 56-year-old female with long history of refractory depression, poorly treated with past medication trials who presents for worsening depression in the face of her mother going to a detention. Patient is a bit of a scattered historian. Formulation: -patient reports depression for decades which she says has never been treated very well with medication. She currently presents as severely depressed with psychomotor retardation. Patient has some minimal support in the community including a therapist. Regarding family psychiatric history patient says that her father was very quiet which leans towards possible genetic contribution. Patient's thought process is a little distracted and she sometimes brings up thoughts unrelated to mortgage or loan underwriter's question; at this time, mortgage or loan underwriter interprets this as due to diminished concentration, distractedness and negative symptoms of depression. Discussed case with patient's former outpatient psychiatrist Dr. Thomson who wonders if patient may ASD or be schizotypal; patient has odd behavior at baseline. Numerous medication trials including Depakote and atypicals. Patient may have had some psychotic symptoms in the past; has gotten paranoid at times. Patient had episode where she struggle to interact with her ailing and demented father appropriately, trying to get him to dance and getting angry and swearing at him. Plan: CV; 3 day notice in Q 15 minute checks Increased to Wellbutrin XL to 450mg daily; Patient agrees and has tolerated lower doses; wants to see if this can work or not Continue Seroquel 50 mg q.h.s. ECT ordered for 11/01/2021 NPO after midnight for day to day details... Hospital course: 10/26 Patient remains depressed and has been in bed all day. Agrees to increased Wellbutrin and will still consider T MS. She is it ambivalent about all treatment however and talks about discharging tomorrow 10/27 remains depressed; patient is open to ECT as she does not think that she is stable enough to go home and get herself to T MS daily Past medication trials: Zoloft: maybe a little helpful Trazodone Citalopram: No effect Paxil: Unclear if helpful; patient did not want to go higher; Patient reports horrible delirium when getting off it Fluoxetine: No effect Wellbutrin: Some irritability when titrated Ritalin/Adderall: No positive effect; increased anxiety Depakote; no effect Lamictal; maybe lowered irritability but patient stopped it not wanting to take it further Risperdal: No effect Zyprexa: Weight gain, no effect Abilify: No effect Never tried: [place], mirtazapine, TCAs, MAOI's, ECT, TMS, I spent minutes with the patient and/or on the patient floor today, greater than?50% of which was spent counseling/coordinating care. Patient educated on: diagnosis, medication risk/benefits and ECT Informed Consent: understands Reason for contiued inpatient stay Substantial Risk for: inability to function
--- NOTE | 2021-10-31 12:01 | HO.PM.IMCN ---
History of Present Illness Data of Consult Service Date: 10/31/21 Primary Care Provider: Dacia Santos MD HPI Reason for consult: Pre-op eval for ECT This is a 56 yo F who is admitted to . Medical consult requested for pre-operative evaluation prior to planned ECT. The patient is seen and examined in her room. She reports no chronic medical diagnosis. She reports to being a fairly active person and denies any exertional CP or sob. PMH Denies PMH -- specifically no HTN/HLD/CAD/ brain injury PSH Chest tube for traumatic pneumothorax SH Denies tobacco, alcohol or illicit substance FH CAD and CABG in her father Review of Systems Review of Systems: negative except HPI [facility] Medical History (Updated 10/31/21 @ 12:06 by Man Koch MD) MDD (major depressive disorder), recurrent episode, severe Social History Household Members: None Housing: Condominium Do you presently have visiting nurse or other home services: No Patient Tobacco Use Status: Never used Tobacco Smoked in Last 30 Days: No e-Cigarette/Vaping Use: Never Used Second Hand Smoke Exposure: No Use of substances other than those prescribed or required for medical reasons: No Currently Displaying Signs/Symptoms of Drug Intoxication Withdrawal: No Any prior treatment program specific to substance use: No Have you been hit, kicked, punched, or otherwise hurt by someone within the past year? If so, by whom?: No Do you feel safe in your current relationship?: No Current Relationship Is there a partner from a previous relationship who is making you feel unsafe now?: No Are you made to feel afraid or neglected: No Advance Directives: No Advance Directives Information Provided: No Advance Directives on File: No Do you have thoughts of harming others: None Do you have a plan to hurt others: No Plan Recently lost weight without trying: Yes How much weight loss: 2-13 pounds Eating poorly because of decreased appetite: Yes Nutrition screen score: 4 Nutrition Risks: No Nutritional Risk Patient : No : No Poor oral hygiene: No service: No Sexual orientation: Did not discuss Meds Allergies Allergy/AdvReac Type Severity Reaction Status Date / Time No Known Allergies Allergy Verified 10/23/21 17:36 Active Medications: Current Medications Acetaminophen (Acetaminophen 325 Mg Tablet) 650 mg PO Q6H PRN PRN Reason: Headache/Pain Mild Scale (1-3) Last Admin: 10/29/21 16:55 Dose: 650 mg Documented by: Al Hydroxide/Mg Hydroxide (Magnesium Hydrox/Alum Hydrox 30 Ml Oral.Susp) 30 ml PO Q6H PRN PRN Reason: Heartburn/Nausea Bupropion HCl (Bupropion Hcl Xl 150 Mg Tab.Er.24h) 450 mg PO DAILY [facility] Last Admin: 10/31/21 09:31 Dose: 450 mg Documented by: Hydroxyzine HCl (Hydroxyzine Hcl 25 Mg Tablet) 25 mg PO BID PRN PRN Reason: Anxiety Ibuprofen (Ibuprofen 400 Mg Tablet) 400 mg PO QID PRN PRN Reason: Pain, Moderate (Pain Scale 4-6 Last Admin: 10/31/21 09:39 Dose: 400 mg Documented by: Magnesium Hydroxide (Milk Of Magnesia 30 Ml Oral.Susp) 30 ml PO DAILY PRN PRN Reason: Constipation Quetiapine Fumarate (Quetiapine Fumarate 50 Mg Tablet) 50 mg PO BEDTIME [facility] Last Admin: 10/30/21 21:21 Dose: 50 mg Documented by: Quetiapine Fumarate (Quetiapine Fumarate 50 Mg Tablet) 50 mg PO DAILY PRN PRN Reason: Anxiety Trazodone HCl (Trazodone Hcl 50 Mg Tablet) 50 mg PO BEDTIME PRN PRN Reason: Insomnia Last Admin: 10/30/21 21:20 Dose: 50 mg Documented by: Home Medications Medication Instructions Recorded Confirmed Last Taken Type bupropion HCl 150 mg 24 hr tablet, 150 mg PO QAM 10/23/21 10/23/21 Unknown History extended release hydroxyzine HCl 25 mg tablet 25 mg PO BID PRN 10/23/21 10/23/21 Unknown History quetiapine 50 mg tablet 50 mg PO BEDTIME 10/23/21 10/23/21 Unknown History quetiapine 50 mg tablet 50 mg PO DAILY PRN 10/23/21 10/23/21 Unknown History Physical Exam Vital Signs and Narrative: Vital Signs: Last Vital Signs Temp 97.6 F 10/31/21 06:25 Pulse 75 10/31/21 06:25 Resp 16 10/31/21 06:25 BP 115/64 10/31/21 06:25 Pulse Ox 97 10/31/21 06:25 BMI result Body Mass Index 23.8 Const: Other: General - no acute distress, appears comfortable Cardiovascular - regular rate and rhythm, S1-S2 Lungs - normal respiratory effort, clear to auscultation bilaterally, no wheezing Abdomen - soft, nontender, no rebound or guarding Extremities - no edema bilaterally Neuro - awake and alert, no focal deficits Results Labs CBC and Chem 7: 10/23/21 17:50 10/23/21 17:50 Assessment and Plan (1) Preoperative cardiovascular examination: Status: Acute Plan 56 yo F who endorses no significant PMH is admitted to . Medical consult requested for pre-op evaluation prior to ECT. Patient's chart including lab work / EKG reviewed. Patient's RCRI - Class I (3.9% chance of 30-day adverse events). At this time, no further work up needed prior to planned procedure. Will sign off. Please reconsult PRN.
[2021-10-31] MEDS: QUEtiapine Fumarate 50 MG TABLET PO (21:11)
[2021-10-31] MEDS: traZODone HCL 50 MG TABLET PO (21:11)
[2021-11-01] VITALS (10 sets, daily range): BP systolic 92–123; BP diastolic 38–68; PULSE 68–100; RESP 14–18; TEMP 36.1–36.7; O2SAT 93–100; BMI 24.2
--- NOTE | 2021-11-01 10:38 | HO.PSYCHPN ---
Subjective Subjective Date of Service: 11/01/21 Reason For Visit: Depression,SI Interim History: Patient reports depression and anxious; she is worried about her finances and maintaining her condo. Has a headache from ECT but otherwise Denies side effects and agrees to continue. Patient talked some about how her depression just worsened in worsened over the past few months and how it is very hard to go out to the store and shop or be seen outside. She was grateful that her job was willing to give her leave until November 20. Oil Pipeline Dispatcher spoke with patient's sister Daly who reports that patient has had odd interaction with others for most of her life and that there seems to be a disconnect between with others. Pt gave an example that once when they were discussing a 's due to cancer, patient's 1st response was that her own back was hurting and how that was a problem, seemingly oblivious to how out of context her comment was. Sister says it is totally out of character for patient to remain in her house and that normally, would not depressed she is out of the house, going for walks going swimming, going shopping. Mental Status Exam Mental Status Exam Narrative: Pt is alert and oriented; behavior is cooperative, distracted, slow moving; patient is not in distress; dressed in casual attire with unkempt hair but adequate hygiene; mood is described as so-so and affect depressed, downcast; avoids eye contact; intermittent grimace. Speech is lowered rate and softer volume; psychomotor retardation present; thought process is goal directed but can be a little tangential; Thought content is on how hard? life is now with worse depression, difficulty of ever getting another job and tx; TC mostly otherwise pertinent to relevant topics; no overt delusional content or paranoid ideations or grandiosity expressed; Intermittent, passive SI; no HI. There is no evidence of perceptual disturbance and denies AVH;? Patients insight and judgment are impaired. Diagnostics Vital Signs (24Hr): Vital Signs - 24 hr 11/01/21 06:00 Temperature 98.1 F Pulse Rate 72 Respiratory Rate 18 Blood Pressure 112/55 L Pulse Oximetry 96 BMI result Body Mass Index 23.8 Labs Results: 10/23/21 17:50 10/23/21 17:50 Imaging Radiology Impressions: ITS Impressions Foot X-Ray 10/29/21 10:18 IMPRESSION: Normal left foot. Medications Medications Current Medications Acetaminophen (Acetaminophen 325 Mg Tablet) 650 mg PO Q6H PRN PRN Reason: Headache/Pain Mild Scale (1-3) Last Admin: 10/29/21 16:55 Dose: 650 mg Documented by: Al Hydroxide/Mg Hydroxide (Magnesium Hydrox/Alum Hydrox 30 Ml Oral.Susp) 30 ml PO Q6H PRN PRN Reason: Heartburn/Nausea Bupropion HCl (Bupropion Hcl Xl 150 Mg Tab.Er.24h) 450 mg PO DAILY [facility] Last Admin: 10/31/21 09:31 Dose: 450 mg Documented by: Hydroxyzine HCl (Hydroxyzine Hcl 25 Mg Tablet) 25 mg PO BID PRN PRN Reason: Anxiety Ibuprofen (Ibuprofen 400 Mg Tablet) 400 mg PO QID PRN PRN Reason: Pain, Moderate (Pain Scale 4-6 Last Admin: 10/31/21 09:39 Dose: 400 mg Documented by: Magnesium Hydroxide (Milk Of Magnesia 30 Ml Oral.Susp) 30 ml PO DAILY PRN PRN Reason: Constipation Quetiapine Fumarate (Quetiapine Fumarate 50 Mg Tablet) 50 mg PO BEDTIME [facility] Last Admin: 10/31/21 21:11 Dose: 50 mg Documented by: Quetiapine Fumarate (Quetiapine Fumarate 50 Mg Tablet) 50 mg PO DAILY PRN PRN Reason: Anxiety Trazodone HCl (Trazodone Hcl 50 Mg Tablet) 50 mg PO BEDTIME PRN PRN Reason: Insomnia Last Admin: 10/31/21 21:11 Dose: 50 mg Documented by: Allergies Allergies Allergy/AdvReac Type Severity Reaction Status Date / Time No Known Allergies Allergy Verified 10/23/21 17:36 Assessment & Plan Assessment & Plan (1) MDD (major depressive disorder), recurrent episode, severe: Status: Acute Code(s): F33.2 - Major depressive disorder, recurrent severe without psychotic features Plan Patient is a 56-year-old female with long history of refractory depression, poorly treated with past medication trials who presents for worsening depression in the face of her mother going to a longterm. Patient is a bit of a scattered historian. Formulation: -patient reports depression for decades which she says has never been treated very well with medication. She currently presents as severely depressed with psychomotor retardation. Patient has some minimal support in the community including a therapist. Regarding family psychiatric history patient says that her father was very quiet which leans towards possible genetic contribution. Patient's thought process is a little distracted and she sometimes brings up thoughts unrelated to lyric writer's question; at this time, lyric writer interprets this as due to diminished concentration, distractedness and negative symptoms of depression. Discussed case with patient's former outpatient psychiatrist Dr. Thomson who wonders if patient may ASD or be schizotypal; patient has odd behavior at baseline. Numerous medication trials including Depakote and atypicals. Patient may have had some psychotic symptoms in the past; has gotten paranoid at times. Patient had episode where she struggle to interact with her ailing and demented father appropriately, trying to get him to dance and getting angry and swearing at him. Plan: CV; 3 day notice in Q 15 minute checks Increased to Wellbutrin XL to 450mg daily; Patient agrees and has tolerated lower doses; wants to see if this can work or not Continue Seroquel 50 mg q.h.s. ECT # 1 on 11/01/2021 PENDING ECT #2 for 11/03/21 NPO after midnight for day to day details... Hospital course: 10/26 Patient remains depressed and has been in bed all day. Agrees to increased Wellbutrin and will still consider T MS. She is it ambivalent about all treatment however and talks about discharging tomorrow 10/27 remains depressed; patient is open to ECT as she does not think that she is stable enough to go home and get herself to T MS daily Past medication trials: Zoloft: maybe a little helpful Trazodone Citalopram: No effect Paxil: Unclear if helpful; patient did not want to go higher; Patient reports horrible delirium when getting off it Fluoxetine: No effect Wellbutrin: Some irritability when titrated Ritalin/Adderall: No positive effect; increased anxiety Depakote; no effect Lamictal; maybe lowered irritability but patient stopped it not wanting to take it further Risperdal: No effect Zyprexa: Weight gain, no effect Abilify: No effect Never tried: [place], mirtazapine, TCAs, MAOI's, ECT, TMS, I spent minutes with the patient and/or on the patient floor today, greater than?50% of which was spent counseling/coordinating care. Patient educated on: ECT Informed Consent: understands Reason for contiued inpatient stay Substantial Risk for: inability to function and rapid decompensation
--- NOTE | 2021-11-01 12:47 | HO.ANESPROP2 ---
HPI - Anesthesia Eval Consult details Narrative: 56 yo female patient for ECT (First time) [facility] Active Problems Active Problems: All Active Problems (Updated 10/31/21 @ 12:06 by Man Koch MD) Preoperative cardiovascular examination (Acute) MDD (major depressive disorder), recurrent episode, severe (Acute) Depression (Acute) Past Medical History Medical History (Updated 10/31/21 @ 12:06 by Man Koch MD) MDD (major depressive disorder), recurrent episode, severe Family History Family history of problems with anesthesia: No Surgical History History of Problems with Anesthesia: No Social History Social History Household Members: None Housing: Condominium Do you presently have visiting nurse or other home services: No Patient Tobacco Use Status: Never used Tobacco Smoked in Last 30 Days: No e-Cigarette/Vaping Use: Never Used Second Hand Smoke Exposure: No Use of substances other than those prescribed or required for medical reasons: No Currently Displaying Signs/Symptoms of Drug Intoxication Withdrawal: No Any prior treatment program specific to substance use: No Have you been hit, kicked, punched, or otherwise hurt by someone within the past year? If so, by whom?: No Do you feel safe in your current relationship?: No Current Relationship Is there a partner from a previous relationship who is making you feel unsafe now?: No Are you made to feel afraid or neglected: No Are you DNR?: No Advance Directives: No Advance Directives Information Provided: No Advance Directives on File: No Do you have thoughts of harming others: None Do you have a plan to hurt others: No Plan Recently lost weight without trying: No How much weight loss: 2-13 pounds Eating poorly because of decreased appetite: Yes Nutrition screen score: 2 Nutrition Risks: No Nutritional Risk Patient : No : No Poor oral hygiene: No service: No Sexual orientation: Did not discuss Meds Allergies Allergy/AdvReac Type Severity Reaction Status Date / Time No Known Allergies Allergy Verified 10/23/21 17:36 Active Medications: Current Medications Acetaminophen (Acetaminophen 325 Mg Tablet) 650 mg PO Q6H PRN PRN Reason: Headache/Pain Mild Scale (1-3) Last Admin: 10/29/21 16:55 Dose: 650 mg Documented by: Al Hydroxide/Mg Hydroxide (Magnesium Hydrox/Alum Hydrox 30 Ml Oral.Susp) 30 ml PO Q6H PRN PRN Reason: Heartburn/Nausea Bupropion HCl (Bupropion Hcl Xl 150 Mg Tab.Er.24h) 450 mg PO DAILY [facility] Last Admin: 10/31/21 09:31 Dose: 450 mg Documented by: Hydroxyzine HCl (Hydroxyzine Hcl 25 Mg Tablet) 25 mg PO BID PRN PRN Reason: Anxiety Ibuprofen (Ibuprofen 400 Mg Tablet) 400 mg PO QID PRN PRN Reason: Pain, Moderate (Pain Scale 4-6 Last Admin: 10/31/21 09:39 Dose: 400 mg Documented by: Magnesium Hydroxide (Milk Of Magnesia 30 Ml Oral.Susp) 30 ml PO DAILY PRN PRN Reason: Constipation Quetiapine Fumarate (Quetiapine Fumarate 50 Mg Tablet) 50 mg PO BEDTIME [facility] Last Admin: 10/31/21 21:11 Dose: 50 mg Documented by: Quetiapine Fumarate (Quetiapine Fumarate 50 Mg Tablet) 50 mg PO DAILY PRN PRN Reason: Anxiety Trazodone HCl (Trazodone Hcl 50 Mg Tablet) 50 mg PO BEDTIME PRN PRN Reason: Insomnia Last Admin: 10/31/21 21:11 Dose: 50 mg Documented by: Home Medications Medication Instructions Recorded Confirmed Last Taken Type bupropion HCl 150 mg 24 hr tablet, 150 mg PO QAM 10/23/21 10/23/21 Unknown History extended release hydroxyzine HCl 25 mg tablet 25 mg PO BID PRN 10/23/21 10/23/21 Unknown History quetiapine 50 mg tablet 50 mg PO BEDTIME 10/23/21 10/23/21 Unknown History quetiapine 50 mg tablet 50 mg PO DAILY PRN 10/23/21 10/23/21 Unknown History Exam Exam Date and Time: November 01, 2021 1247 Height,Weight and Vital Signs: Height 5 ft 6 in Weight 67 kg Last Vital Signs Temp 98.1 F 11/01/21 06:00 Pulse 72 11/01/21 06:00 Resp 18 11/01/21 06:00 BP 112/55 L 11/01/21 06:00 Pulse Ox 96 11/01/21 06:00 Vital Signs Temp Pulse Resp BP Pulse Ox 11/01/21 13:12 97.4 F 72 18 105/52 L 98 11/01/21 06:00 98.1 F 72 18 112/55 L 96 Pertinent Lab Results Pertinent Lab Results: Laboratory Tests 10/23/21 10/23/21 10/23/21 16:05 16:06 17:50 WBC 8.3 RBC 4.90 Hgb 15.3 Hct 44.9 MCV 91.6 MCH 31.2 MCHC 34.1 RDW 11.5 Plt Count 292 MPV 9.6 Immature Gran % (Auto) 0.2 Neut % (Auto) 64.6 Lymph % (Auto) 28.7 Ross % (Auto) 5.2 Eos % (Auto) 0.8 Baso % (Auto) 0.5 Lymph # (Auto) 2.4 Ross # (Auto) 0.4 Eos # (Auto) 0.1 Baso # (Auto) 0.0 Abs Immat Gran (auto) 0.02 Absolute Neuts (auto) 5.3 Absolute Nucleated RBC 0.000 Nucleated RBC % (auto) 0.0 Sodium Potassium Chloride Carbon Dioxide Anion Gap BUN Creatinine Estim Creat Clear Calc Estimated GFR Random Glucose Calcium Magnesium Total Bilirubin AST ALT Alkaline Phosphatase Total Protein Albumin Vitamin B12 Folate TSH Free T4 Urine Opiates Screen Not Detected Urine Fentanyl Screen Not Detected Ur Barbiturates Screen Not Detected Ur Phencyclidine Scrn Not Detected Ur Amphetamines Screen Not Detected U Benzodiazepines Scrn Not Detected Urine Cocaine Screen Not Detected U Marijuana (THC) Screen Not Detected Ethyl Alcohol COVID-19 ([facility]) Negative COVID-19 Clin Com See Note 10/23/21 10/23/21 10/25/21 17:50 17:50 08:04 WBC RBC Hgb Hct MCV MCH MCHC RDW Plt Count MPV Immature Gran % (Auto) Neut % (Auto) Lymph % (Auto) Ross % (Auto) Eos % (Auto) Baso % (Auto) Lymph # (Auto) Ross # (Auto) Eos # (Auto) Baso # (Auto) Abs Immat Gran (auto) Absolute Neuts (auto) Absolute Nucleated RBC Nucleated RBC % (auto) Sodium 139 Potassium 4.0 Chloride 101 Carbon Dioxide 30 H Anion Gap 12 BUN 14 Creatinine 0.84 Estim Creat Clear Calc 71.7 Estimated GFR > 60 Random Glucose 135 H Calcium 10.3 H Magnesium 2.2 Total Bilirubin 0.7 AST 17 ALT 19 Alkaline Phosphatase 78 Total Protein 7.6 Albumin 4.6 Vitamin B12 Folate TSH 1.35 Free T4 0.95 Urine Opiates Screen Urine Fentanyl Screen Ur Barbiturates Screen Ur Phencyclidine Scrn Ur Amphetamines Screen U Benzodiazepines Scrn Urine Cocaine Screen U Marijuana (THC) Screen Ethyl Alcohol < 10 COVID-19 ([facility]) COVID-19 [employer] Com 10/25/21 08:04 WBC RBC Hgb Hct MCV MCH MCHC RDW Plt Count MPV Immature Gran % (Auto) Neut % (Auto) Lymph % (Auto) Ross % (Auto) Eos % (Auto) Baso % (Auto) Lymph # (Auto) Ross # (Auto) Eos # (Auto) Baso # (Auto) Abs Immat Gran (auto) Absolute Neuts (auto) Absolute Nucleated RBC Nucleated RBC % (auto) Sodium Potassium Chloride Carbon Dioxide Anion Gap BUN Creatinine Estim Creat Clear Calc Estimated GFR Random Glucose Calcium Magnesium Total Bilirubin AST ALT Alkaline Phosphatase Total Protein Albumin Vitamin B12 874 Folate 13.6 TSH Free T4 Urine Opiates Screen Urine Fentanyl Screen Ur Barbiturates Screen Ur Phencyclidine Scrn Ur Amphetamines Screen U Benzodiazepines Scrn Urine Cocaine Screen U Marijuana (THC) Screen Ethyl Alcohol COVID-19 ([facility]) COVID-19 [employer] Com Narrative Narrative: Date of Service: 10/27/21 Procedure(s): ECG 12 lead EKG Vent. Rate : 081 BPM ? ? Atrial Rate : 081 BPM ?? P-R Int : 204 ms? QRS Dur : 076 ms ? ? QT Int : 344 ms ? ? ? P-R-T Axes : 014 095 024 degrees ?? QTc Int : 399 ms ? Normal sinus rhythm Rightward axis Borderline ECG When compared with ECG of 24-OCT-2021 16:15, No significant change was found Airway Mallampati Class: II (Small mouth) TM Dist: >3cm Neck ROM: Full Loose/Missing/Broken Teeth: No Heart: RRR Lungs: CTAB Assessment and Plan Assessment Anesthesia Assessment: Anesthesia Plan Discussed and Chart Reviewed Final Anesthetic Review Family History of Problems with Anesthesia: No History of Problems with Anesthesia: No NPO: Yes ASA Class: II Final Preanesthetic Review: No Changes in Pt Med Stat, Meds/Allgs Chart Reviewed, Consent Obtained/Reviewed and Anes Risks/Benef Reviewed Patient Risk: Intermediate Procedure Risk: Intermediate Assessment/Block/Sedation in SS: Assess/Block/Sedation- Anesthetic Plan Anesthetic Plan: GA Disposition: Standard PACU and Inp. Admit - Standard Bed
--- NOTE | 2021-11-01 13:57 | MHC.SHP ---
Pre-Procedural Eval Section A Date of Service: 11/01/21 The patient is an INPATIENT: Yes Changes since office visit: Yes Cold of Flu in the past 2 weeks, Yes New Medical Problems, Yes Changes in Medication and Yes Patient answered all questions The History & Physical has been completed within 30 days and I have reviewed it.: No Section B Chief Complaint: Depression,SI Allergies: Allergies Allergy/AdvReac Type Severity Reaction Status Date / Time No Known Allergies Allergy Verified 10/23/21 17:36 Plan I have reviewed the history and physical and performed a pertinent physical examination on my patient. No changes have occurred unless specified.
--- NOTE | 2021-11-01 14:09 | HO.ECTPROC ---
ECT Procedure Note Diagnosis/Treatment Date of Service: 11/01/21 Diagnosis: Major Depressive Disorder Current Treatment Number: 1 Treatment: Series Interval Clinical Notes: The patient reported a long history of depression with recent exacerbation of symptoms. No improvement with the recent change of medications. Never had ECT in the past. ECT Settings Device: THYMATRON DGx Electrode Placement: Right Unilateral Program/Pulse Width: 0.25 Energy Percent: 100 Seizure Duration By EEG (in seconds): 69 By Motor Observation (in seconds): 23 Medications Administration General Anesthetic: Etomidate (14) Muscle Relaxant: Succinylcholine (80) Ancillary Medications Analgesics: Torodol - Pre ECT Anti-emetics: Zofran - Pre ECT Airway Management Airway Management: Bag Mask Ventilation Treatment Recommendations Electrode Placement: Right Unilateral Program/Pulse Width: 0.25 Energy Percent: 80 Pt Tolerated Procedure w/o Issue: Yes
[2021-11-01] MEDS: Acetaminophen 325 MG TABLET 650 MG PO ×2 (15:28→21:34)
[2021-11-01] MEDS: buPROPion HCl XL 150 MG TAB.ER.24H 450 MG PO (15:28)
[2021-11-01] MEDS: QUEtiapine Fumarate 50 MG TABLET PO (21:34)
--- NOTE | 2021-11-01 22:22 | PC.NURSE ---
Patient stated to this check writer I don't think ECT is going to work for me. She was unable to elaborate on her thought. She also stated to this check writer I don't feel like showering, which is not like me.
[2021-11-02 06:00] VITALS: BP 120/67; PULSE 80; TEMP 36.8; O2SAT 97
[2021-11-02 07:00] VITALS: BMI 23.8
[2021-11-02] MEDS: buPROPion HCl XL 150 MG TAB.ER.24H 450 MG PO (08:12)
--- NOTE | 2021-11-02 17:05 | HO.PSYCHPN ---
Subjective Subjective Date of Service: 11/02/21 Reason For Visit: Depression,SI Interim History: still feels depressed; skeptical that Wellbutrin is going to work; skeptical that ECT was going to work. Clinical Account Executive provided further education on ECT and the need to have several sessions, at least 6 before most feel benefit, but pt says she remains doubtful. She c/o of pentecostal skin pain on right pentecostal but agrees to continue with treatment.feller operator explains will see what can be done to ameliorate this. Of note, though still in bed a lot, she seems more outward on the unit, more visible in milue. Mental Status Exam Mental Status Exam Narrative: Pt is alert and oriented; behavior is cooperative, distracted, slow moving; patient is not in distress; dressed in casual attire with unkempt hair but adequate hygiene; mood is described as ok and affect depressed, downcast; avoids eye contact; intermittent grimace. Speech is lowered rate and softer volume; psychomotor retardation present; thought process is goal directed but can be a little tangential; Thought content is on how hard?life is now with worse depression, her job, finance trouble and tx; TC mostly otherwise pertinent to relevant topics; no overt delusional content or paranoid ideations or grandiosity expressed; Intermittent, passive SI; no HI. There is no evidence of perceptual disturbance and denies AVH;? Patients insight and judgment are impaired. Diagnostics Vital Signs (24Hr): Vital Signs - 24 hr 11/01/21 20:25 11/02/21 06:00 Temperature 97.9 F 98.3 F Pulse Rate 100 80 Blood Pressure 95/54 L 120/67 Pulse Oximetry 100 97 BMI result Body Mass Index 23.8 Labs Results: 10/23/21 17:50 10/23/21 17:50 Imaging Radiology Impressions: ITS Impressions Foot X-Ray 10/29/21 10:18 IMPRESSION: Normal left foot. Medications Medications Current Medications Acetaminophen (Acetaminophen 325 Mg Tablet) 650 mg PO Q6H PRN PRN Reason: Headache/Pain Mild Scale (1-3) Last Admin: 11/01/21 21:34 Dose: 650 mg Documented by: Acetaminophen (Acetaminophen 325 Mg Tablet) 650 mg PO ONCE PRN PRN Reason: Pain, Mild (Pain Scale 1-3) Al Hydroxide/Mg Hydroxide (Magnesium Hydrox/Alum Hydrox 30 Ml Oral.Susp) 30 ml PO Q6H PRN PRN Reason: Heartburn/Nausea Bupropion HCl (Bupropion Hcl Xl 150 Mg Tab.Er.24h) 450 mg PO DAILY [facility] Last Admin: 11/02/21 08:12 Dose: 450 mg Documented by: Hydroxyzine HCl (Hydroxyzine Hcl 25 Mg Tablet) 25 mg PO BID PRN PRN Reason: Anxiety Ibuprofen (Ibuprofen 400 Mg Tablet) 400 mg PO QID PRN PRN Reason: Pain, Moderate (Pain Scale 4-6 Last Admin: 10/31/21 09:39 Dose: 400 mg Documented by: Magnesium Hydroxide (Milk Of Magnesia 30 Ml Oral.Susp) 30 ml PO DAILY PRN PRN Reason: Constipation Ondansetron HCl (Ondansetron Hcl 4 Mg/2 Ml Vial) 4 mg IVPUSH ONCE PRN PRN Reason: Nausea and Vomiting Quetiapine Fumarate (Quetiapine Fumarate 50 Mg Tablet) 50 mg PO BEDTIME [facility] Last Admin: 11/01/21 21:34 Dose: 50 mg Documented by: Quetiapine Fumarate (Quetiapine Fumarate 50 Mg Tablet) 50 mg PO DAILY PRN PRN Reason: Anxiety Trazodone HCl (Trazodone Hcl 50 Mg Tablet) 50 mg PO BEDTIME PRN PRN Reason: Insomnia Last Admin: 10/31/21 21:11 Dose: 50 mg Documented by: Allergies Allergies Allergy/AdvReac Type Severity Reaction Status Date / Time No Known Allergies Allergy Verified 10/23/21 17:36 Assessment & Plan Assessment & Plan (1) MDD (major depressive disorder), recurrent episode, severe: Status: Acute Code(s): F33.2 - Major depressive disorder, recurrent severe without psychotic features Plan Patient is a 56-year-old female with long history of refractory depression, poorly treated with past medication trials who presents for worsening depression in the face of her mother going to a alf. Patient is a bit of a scattered historian. Formulation: -patient reports depression for decades which she says has never been treated very well with medication. She currently presents as severely depressed with psychomotor retardation. Patient has some minimal support in the community including a therapist. Regarding family psychiatric history patient says that her father was very quiet which leans towards possible genetic contribution. Patient's thought process is a little distracted and she sometimes brings up thoughts unrelated to assembly instructions writer's question; at this time, assembly instructions writer interprets this as due to diminished concentration, distractedness and negative symptoms of depression. Discussed case with patient's former outpatient psychiatrist Dr. Thomson who wonders if patient may ASD or be schizotypal; patient has odd behavior at baseline. Numerous medication trials including Depakote and atypicals. Patient may have had some psychotic symptoms in the past; has gotten paranoid at times. Patient had episode where she struggle to interact with her ailing and demented father appropriately, trying to get him to dance and getting angry and swearing at him. Plan: CV; 3 day notice in Q 15 minute checks Increased to Wellbutrin XL to 450mg daily; Patient agrees and has tolerated lower doses; wants to see if this can work or not Continue Seroquel 50 mg q.h.s. ECT # 1 on 11/01/2021 PENDING ECT #2 for 11/03/21 NPO after midnight for day to day details... Hospital course: 10/26 Patient remains depressed and has been in bed all day. Agrees to increased Wellbutrin and will still consider T MS. She is it ambivalent about all treatment however and talks about discharging tomorrow 10/27 remains depressed; patient is open to ECT as she does not think that she is stable enough to go home and get herself to T MS daily 11/02 remains depressed but a little more outward; skeptical about ECT (and wellbutrin) but will continue Past medication trials: Zoloft: maybe a little helpful Trazodone Citalopram: No effect Paxil: Unclear if helpful; patient did not want to go higher; Patient reports horrible delirium when getting off it Fluoxetine: No effect Wellbutrin: Some irritability when titrated Ritalin/Adderall: No positive effect; increased anxiety Depakote; no effect Lamictal; maybe lowered irritability but patient stopped it not wanting to take it further Risperdal: No effect Zyprexa: Weight gain, no effect Abilify: No effect Never tried: [place], mirtazapine, TCAs, MAOI's, ECT, TMS, I spent minutes with the patient and/or on the patient floor today, greater than?50% of which was spent counseling/coordinating care. Patient educated on: diagnosis, medication risk/benefits and ECT Informed Consent: understands and further education needed Reason for contiued inpatient stay Substantial Risk for: inability to function and rapid decompensation
[2021-11-02 17:10] VITALS: BP 102/56; PULSE 86; TEMP 37
[2021-11-02] MEDS: QUEtiapine Fumarate 50 MG TABLET PO (21:05)
[2021-11-02] MEDS: traZODone HCL 50 MG TABLET PO (21:05)
[2021-11-03] VITALS (8 sets, daily range): BP systolic 93–113; BP diastolic 45–67; PULSE 66–80; RESP 12–18; TEMP 36.7–37.2; O2SAT 96–98
--- NOTE | 2021-11-03 06:49 | P.CONAN_ITS ---
[facility] Active Problems Active Problems: All Active Problems (Updated 10/31/21 @ 12:06 by Man Koch MD) Preoperative cardiovascular examination (Acute) MDD (major depressive disorder), recurrent episode, severe (Acute) Depression (Acute) Past Medical History Medical History (Updated 10/31/21 @ 12:06 by Man Koch MD) MDD (major depressive disorder), recurrent episode, severe Family History Family history of problems with anesthesia: No Surgical History History of Problems with Anesthesia: No Social History Social History Household Members: None Housing: Condominium Do you presently have visiting nurse or other home services: No Patient Tobacco Use Status: Never used Tobacco Smoked in Last 30 Days: No e-Cigarette/Vaping Use: Never Used Second Hand Smoke Exposure: No Use of substances other than those prescribed or required for medical reasons: No Currently Displaying Signs/Symptoms of Drug Intoxication Withdrawal: No Any prior treatment program specific to substance use: No Have you been hit, kicked, punched, or otherwise hurt by someone within the past year? If so, by whom?: No Do you feel safe in your current relationship?: No Current Relationship Is there a partner from a previous relationship who is making you feel unsafe now?: No Are you made to feel afraid or neglected: No Are you DNR?: No Advance Directives: No Advance Directives Information Provided: No Advance Directives on File: No Do you have thoughts of harming others: None Do you have a plan to hurt others: No Plan Recently lost weight without trying: No How much weight loss: 2-13 pounds Eating poorly because of decreased appetite: Yes Nutrition screen score: 2 Nutrition Risks: No Nutritional Risk Patient : No : No Poor oral hygiene: No service: No Sexual orientation: Did not discuss Meds Allergies Allergy/AdvReac Type Severity Reaction Status Date / Time No Known Allergies Allergy Verified 10/23/21 17:36 Active Medications: Current Medications Acetaminophen (Acetaminophen 325 Mg Tablet) 650 mg PO Q6H PRN PRN Reason: Headache/Pain Mild Scale (1-3) Last Admin: 11/01/21 21:34 Dose: 650 mg Documented by: Acetaminophen (Acetaminophen 325 Mg Tablet) 650 mg PO ONCE PRN PRN Reason: Pain, Mild (Pain Scale 1-3) Al Hydroxide/Mg Hydroxide (Magnesium Hydrox/Alum Hydrox 30 Ml Oral.Susp) 30 ml PO Q6H PRN PRN Reason: Heartburn/Nausea Bupropion HCl (Bupropion Hcl Xl 150 Mg Tab.Er.24h) 450 mg PO DAILY [facility] Last Admin: 11/02/21 08:12 Dose: 450 mg Documented by: Hydroxyzine HCl (Hydroxyzine Hcl 25 Mg Tablet) 25 mg PO BID PRN PRN Reason: Anxiety Lactated Ringer's (Lr) 1,000 mls @ 50 mls/hr IVCONT .Q20H [facility] Ibuprofen (Ibuprofen 400 Mg Tablet) 400 mg PO QID PRN PRN Reason: Pain, Moderate (Pain Scale 4-6 Last Admin: 10/31/21 09:39 Dose: 400 mg Documented by: Magnesium Hydroxide (Milk Of Magnesia 30 Ml Oral.Susp) 30 ml PO DAILY PRN PRN Reason: Constipation Ondansetron HCl (Ondansetron Hcl 4 Mg/2 Ml Vial) 4 mg IVPUSH ONCE PRN PRN Reason: Nausea and Vomiting Quetiapine Fumarate (Quetiapine Fumarate 50 Mg Tablet) 50 mg PO BEDTIME [facility] Last Admin: 11/02/21 21:05 Dose: 50 mg Documented by: Quetiapine Fumarate (Quetiapine Fumarate 50 Mg Tablet) 50 mg PO DAILY PRN PRN Reason: Anxiety Trazodone HCl (Trazodone Hcl 50 Mg Tablet) 50 mg PO BEDTIME PRN PRN Reason: Insomnia Last Admin: 11/02/21 21:05 Dose: 50 mg Documented by: Home Medications Medication Instructions Recorded Confirmed Last Taken Type bupropion HCl 150 mg 24 hr tablet, 150 mg PO QAM 10/23/21 10/23/21 Unknown History extended release hydroxyzine HCl 25 mg tablet 25 mg PO BID PRN 10/23/21 10/23/21 Unknown History quetiapine 50 mg tablet 50 mg PO BEDTIME 10/23/21 10/23/21 Unknown History quetiapine 50 mg tablet 50 mg PO DAILY PRN 10/23/21 10/23/21 Unknown History Exam Exam Date and Time: November 03, 2021 0649 Height,Weight and Vital Signs: Height 5 ft 6 in Weight 66.9 kg Last Vital Signs Temp 98.6 F 11/03/21 06:00 Pulse 80 11/03/21 06:00 Resp 16 11/03/21 06:00 BP 99/52 L 11/03/21 06:00 Pulse Ox 96 11/03/21 06:00 Pertinent Lab Results Pertinent Lab Results: Laboratory Tests 10/23/21 10/23/21 10/23/21 16:05 16:06 17:50 WBC 8.3 RBC 4.90 Hgb 15.3 Hct 44.9 MCV 91.6 MCH 31.2 MCHC 34.1 RDW 11.5 Plt Count 292 MPV 9.6 Immature Gran % (Auto) 0.2 Neut % (Auto) 64.6 Lymph % (Auto) 28.7 [place] % (Auto) 5.2 Eos % (Auto) 0.8 Baso % (Auto) 0.5 Lymph # (Auto) 2.4 [place] # (Auto) 0.4 Eos # (Auto) 0.1 Baso # (Auto) 0.0 Abs Immat Gran (auto) 0.02 Absolute Neuts (auto) 5.3 Absolute Nucleated RBC 0.000 Nucleated RBC % (auto) 0.0 Sodium Potassium Chloride Carbon Dioxide Anion Gap BUN Creatinine Estim Creat Clear Calc Estimated GFR Random Glucose Calcium Magnesium Total Bilirubin AST ALT Alkaline Phosphatase Total Protein Albumin Vitamin B12 Folate TSH Free T4 Urine Opiates Screen Not Detected Urine Fentanyl Screen Not Detected Ur Barbiturates Screen Not Detected Ur Phencyclidine Scrn Not Detected Ur Amphetamines Screen Not Detected U Benzodiazepines Scrn Not Detected Urine Cocaine Screen Not Detected U Marijuana (THC) Screen Not Detected Ethyl Alcohol COVID-19 ([facility]) Negative COVID-19 Clin Com See Note 10/23/21 10/23/21 10/25/21 17:50 17:50 08:04 WBC RBC Hgb Hct MCV MCH MCHC RDW Plt Count MPV Immature Gran % (Auto) Neut % (Auto) Lymph % (Auto) [place] % (Auto) Eos % (Auto) Baso % (Auto) Lymph # (Auto) [place] # (Auto) Eos # (Auto) Baso # (Auto) Abs Immat Gran (auto) Absolute Neuts (auto) Absolute Nucleated RBC Nucleated RBC % (auto) Sodium 139 Potassium 4.0 Chloride 101 Carbon Dioxide 30 H Anion Gap 12 BUN 14 Creatinine 0.84 Estim Creat Clear Calc 71.7 Estimated GFR > 60 Random Glucose 135 H Calcium 10.3 H Magnesium 2.2 Total Bilirubin 0.7 AST 17 ALT 19 Alkaline Phosphatase 78 Total Protein 7.6 Albumin 4.6 Vitamin B12 Folate TSH 1.35 Free T4 0.95 Urine Opiates Screen Urine Fentanyl Screen Ur Barbiturates Screen Ur Phencyclidine Scrn Ur Amphetamines Screen U Benzodiazepines Scrn Urine Cocaine Screen U Marijuana (THC) Screen Ethyl Alcohol < 10 COVID-19 ([facility]) COVID-19 [employer] Com 10/25/21 08:04 WBC RBC Hgb Hct MCV MCH MCHC RDW Plt Count MPV Immature Gran % (Auto) Neut % (Auto) Lymph % (Auto) [place] % (Auto) Eos % (Auto) Baso % (Auto) Lymph # (Auto) [place] # (Auto) Eos # (Auto) Baso # (Auto) Abs Immat Gran (auto) Absolute Neuts (auto) Absolute Nucleated RBC Nucleated RBC % (auto) Sodium Potassium Chloride Carbon Dioxide Anion Gap BUN Creatinine Estim Creat Clear Calc Estimated GFR Random Glucose Calcium Magnesium Total Bilirubin AST ALT Alkaline Phosphatase Total Protein Albumin Vitamin B12 874 Folate 13.6 TSH Free T4 Urine Opiates Screen Urine Fentanyl Screen Ur Barbiturates Screen Ur Phencyclidine Scrn Ur Amphetamines Screen U Benzodiazepines Scrn Urine Cocaine Screen U Marijuana (THC) Screen Ethyl Alcohol COVID-19 ([facility]) COVID-19 [employer] Com Airway Mallampati Class: II TM Dist: >3cm Neck ROM: Full Heart: rrr Lungs: cta Assessment and Plan Assessment Anesthesia Assessment: Anesthesia Plan Discussed and Chart Reviewed Final Anesthetic Review Family History of Problems with Anesthesia: No History of Problems with Anesthesia: No NPO: Yes ASA Class: III Final Preanesthetic Review: No Changes in Pt Med Stat, Meds/Allgs Chart Reviewed and Consent Obtained/Reviewed Patient Risk: Intermediate Procedure Risk: Intermediate Anesthetic Plan Anesthetic Plan: GA Disposition: Standard PACU
--- NOTE | 2021-11-03 07:01 | MHC.SHP ---
Pre-Procedural Eval Section A Date of Service: 11/03/21 The patient is an INPATIENT: Yes Changes since office visit: No Cold of Flu in the past 2 weeks, No New Medical Problems, No Changes in Medication and No Patient answered all questions The History & Physical has been completed within 30 days and I have reviewed it.: Yes Section B Chief Complaint: Depression,SI Allergies: Allergies Allergy/AdvReac Type Severity Reaction Status Date / Time No Known Allergies Allergy Verified 10/23/21 17:36 Plan I have reviewed the history and physical and performed a pertinent physical examination on my patient. No changes have occurred unless specified.
--- NOTE | 2021-11-03 07:25 | HO.ECTPROC ---
ECT Procedure Note Diagnosis/Treatment Date of Service: 11/03/21 Diagnosis: Major Depressive Disorder Previous ECT Date: 11/03/21 Current Treatment Number: 2 Treatment: Series Interval Clinical Notes: The patient reports no improvement of her mood with the first ECT. She reported headaches after the procedure. ECT Settings Device: THYMATRON DGx Electrode Placement: Right Unilateral Program/Pulse Width: 0.25 Energy Percent: 80 Seizure Duration By EEG (in seconds): 35 By Motor Observation (in seconds): 23 Medications Administration General Anesthetic: Etomidate (10) Muscle Relaxant: Succinylcholine (80) Ancillary Medications Analgesics: Torodol - Pre ECT Anti-emetics: Zofran - Pre ECT Miscillaneous Medications: Propofol Airway Management Airway Management: Bag Mask Ventilation Treatment Recommendations No Changes Recommended: No change Pt Tolerated Procedure w/o Issue: Yes
[2021-11-03] MEDS: Ibuprofen 400 MG TABLET PO ×2 (09:25→20:21)
[2021-11-03] MEDS: buPROPion HCl XL 150 MG TAB.ER.24H 450 MG PO (09:25)
--- NOTE | 2021-11-03 10:32 | HO.PSYCHPN ---
Subjective Subjective Date of Service: 11/03/21 Reason For Visit: Depression,SI Interim History: still depressed; perseverative that ECT won't work..but says she'll continue. frequently brings up finances, trouble with paying rent. Talks about needing income and not wanting to lose her job however also talks about how she does not like her job and Debates continuing with it. Reports that ECT today went better and no pain sensation at [place] area -debating whether to discharge next week and continue ECT as an outpatient Mental Status Exam Mental Status Exam Narrative: Pt is alert and oriented; behavior is cooperative, distracted, slow moving; patient is not in distress; dressed in casual attire with unkempt hair but adequate hygiene; mood is described as ok and affect depressed, downcast; avoids eye contact; intermittent grimace. Speech is lowered rate and softer volume; psychomotor retardation present; thought process is goal directed but can be a little tangential; Thought content is on how hard?life is now with worse depression, her job, finance trouble and tx; TC mostly otherwise pertinent to relevant topics; no overt delusional content or paranoid ideations or grandiosity expressed; Intermittent, passive SI; no HI. There is no evidence of perceptual disturbance and denies AVH;? Patients insight and judgment are impaired. Diagnostics Vital Signs (24Hr): Vital Signs - 24 hr 11/02/21 17:10 11/03/21 06:00 11/03/21 06:54 Temperature 98.6 F 98.6 F 98.9 F Pulse Rate 86 80 73 Respiratory Rate 16 18 Blood Pressure 102/56 L 99/52 L 95/45 L Pulse Oximetry 96 96 11/03/21 07:47 11/03/21 07:52 11/03/21 07:57 Temperature 98.3 F Pulse Rate 66 77 78 Respiratory Rate 16 16 13 Blood Pressure 107/50 L 113/65 104/60 Pulse Oximetry 98 98 96 11/03/21 08:02 11/03/21 08:17 Temperature 98.0 F 98.0 F Pulse Rate 72 68 Respiratory Rate 15 12 Blood Pressure 104/55 L 93/54 L Pulse Oximetry 97 96 BMI result Body Mass Index 23.8 Labs Results: 10/23/21 17:50 10/23/21 17:50 Imaging Radiology Impressions: ITS Impressions Foot X-Ray 10/29/21 10:18 IMPRESSION: Normal left foot. Medications Medications Current Medications Acetaminophen (Acetaminophen 325 Mg Tablet) 650 mg PO Q6H PRN PRN Reason: Headache/Pain Mild Scale (1-3) Last Admin: 11/01/21 21:34 Dose: 650 mg Documented by: Acetaminophen (Acetaminophen 325 Mg Tablet) 650 mg PO ONCE PRN PRN Reason: Pain, Mild (Pain Scale 1-3) Acetaminophen (Acetaminophen 325 Mg Tablet) 650 mg PO ONCE PRN PRN Reason: Pain, Mild (Pain Scale 1-3) Al Hydroxide/Mg Hydroxide (Magnesium Hydrox/Alum Hydrox 30 Ml Oral.Susp) 30 ml PO Q6H PRN PRN Reason: Heartburn/Nausea Bupropion HCl (Bupropion Hcl Xl 150 Mg Tab.Er.24h) 450 mg PO DAILY [facility] Last Admin: 11/03/21 09:25 Dose: 450 mg Documented by: Hydroxyzine HCl (Hydroxyzine Hcl 25 Mg Tablet) 25 mg PO BID PRN PRN Reason: Anxiety Ibuprofen (Ibuprofen 400 Mg Tablet) 400 mg PO QID PRN PRN Reason: Pain, Moderate (Pain Scale 4-6 Last Admin: 11/03/21 09:25 Dose: 400 mg Documented by: Magnesium Hydroxide (Milk Of Magnesia 30 Ml Oral.Susp) 30 ml PO DAILY PRN PRN Reason: Constipation Ondansetron HCl (Ondansetron Hcl 4 Mg/2 Ml Vial) 4 mg IVPUSH ONCE PRN PRN Reason: Nausea and Vomiting Quetiapine Fumarate (Quetiapine Fumarate 50 Mg Tablet) 50 mg PO BEDTIME [facility] Last Admin: 11/02/21 21:05 Dose: 50 mg Documented by: Quetiapine Fumarate (Quetiapine Fumarate 50 Mg Tablet) 50 mg PO DAILY PRN PRN Reason: Anxiety Trazodone HCl (Trazodone Hcl 50 Mg Tablet) 50 mg PO BEDTIME PRN PRN Reason: Insomnia Last Admin: 11/02/21 21:05 Dose: 50 mg Documented by: Allergies Allergies Allergy/AdvReac Type Severity Reaction Status Date / Time No Known Allergies Allergy Verified 10/23/21 17:36 Assessment & Plan Assessment & Plan (1) MDD (major depressive disorder), recurrent episode, severe: Status: Acute Code(s): F33.2 - Major depressive disorder, recurrent severe without psychotic features Plan Patient is a 56-year-old female with long history of refractory depression, poorly treated with past medication trials who presents for worsening depression in the face of her mother going to a fdc. Patient is a bit of a scattered historian. Formulation: -patient reports depression for decades which she says has never been treated very well with medication. She currently presents as severely depressed with psychomotor retardation. Patient has some minimal support in the community including a therapist. Regarding family psychiatric history patient says that her father was very quiet which leans towards possible genetic contribution. Patient's thought process is a little distracted and she sometimes brings up thoughts unrelated to race and sports book writer's question; at this time, race and sports book writer interprets this as due to diminished concentration, distractedness and negative symptoms of depression. Discussed case with patient's former outpatient psychiatrist Dr. Thomson who wonders if patient may ASD or be schizotypal; patient has odd behavior at baseline. Numerous medication trials including Depakote and atypicals. Patient may have had some psychotic symptoms in the past; has gotten paranoid at times. Patient had episode where she struggle to interact with her ailing and demented father appropriately, trying to get him to dance and getting angry and swearing at him. Plan: CV; 3 day notice in Q 15 minute checks Increased to Wellbutrin XL to 450mg daily; Patient agrees and has tolerated lower doses; wants to see if this can work or not Continue Seroquel 50 mg q.h.s. ECT # 1 on 11/01/21 ECT #2 on 11/03/21 PENDING ECT #2 for 11/06/21 NPO after midnight for day to day details... Hospital course: 10/26 Patient remains depressed and has been in bed all day. Agrees to increased Wellbutrin and will still consider T MS. She is it ambivalent about all treatment however and talks about discharging tomorrow 10/27 remains depressed; patient is open to ECT as she does not think that she is stable enough to go home and get herself to T MS daily 11/02 remains depressed but a little more outward; skeptical about ECT (and wellbutrin) but will continue Past medication trials: Zoloft: maybe a little helpful Trazodone Citalopram: No effect Paxil: Unclear if helpful; patient did not want to go higher; Patient reports horrible delirium when getting off it Fluoxetine: No effect Wellbutrin: Some irritability when titrated Ritalin/Adderall: No positive effect; increased anxiety Depakote; no effect Lamictal; maybe lowered irritability but patient stopped it not wanting to take it further Risperdal: No effect Zyprexa: Weight gain, no effect Abilify: No effect Never tried: [place], mirtazapine, TCAs, MAOI's, ECT, TMS, I spent minutes with the patient and/or on the patient floor today, greater than?50% of which was spent counseling/coordinating care. Patient educated on: medication risk/benefits and TMS Informed Consent: understands Reason for contiued inpatient stay Substantial Risk for: med/psych decompensation
[2021-11-03] MEDS: QUEtiapine Fumarate 50 MG TABLET PO (21:02)
[2021-11-03] MEDS: traZODone HCL 50 MG TABLET PO (21:07)
[2021-11-04 06:00] VITALS: PULSE 86; RESP 16; TEMP 36.2; O2SAT 99
[2021-11-04] MEDS: buPROPion HCl XL 150 MG TAB.ER.24H 450 MG PO (09:41)
--- NOTE | 2021-11-04 16:44 | HO.PSYCHPN ---
Subjective Subjective Date of Service: 11/05/21 Reason For Visit: Depression,SI Interim History: Reports medications and ECT are not helpful. Education provided along with treatment support Encouraged to allow time for interventions to take effect. Room-mate is a support and pt appears to experience comfort from her guidance and supportive stance. Medication Compliance: Yes Side effects from medications: No Attending Groups: Yes Review of Systems Acute medical concerns: No Medical Review of Systems: unchanged Mental Status Exam Mental Status Exam Patient Appearance: Fatigued Patient Orientation: Person, Place, Time and Situation Level of Consciousness: Alert Patient Behavior: Talkative and Good Eye Contact Mood Description: Depressed Affect Description: Flat Patient Cognition Impaired: No Ability to Follow Directions: Fair Speech Pattern: Perseverating, Soft-Spoken, Delayed and Long Pauses Hallucinations: None Delusions: Paranoid Ideation Perceptual Disturbances: Depersonalization and Derealization Thought Process: Rumination Thought Content: positive for [place] Depressive Symptoms: Feelings of Worthlessness, Hopelessness and Low Self Esteem Judgement: Fair Diagnostics Vital Signs (24Hr): Vital Signs - 24 hr 11/03/21 18:00 11/04/21 06:00 Temperature 98.8 F 97.2 F Pulse Rate 77 86 Respiratory Rate 18 16 Blood Pressure 106/67 Pulse Oximetry 96 99 BMI result Body Mass Index 23.8 Labs Results: 10/23/21 17:50 10/23/21 17:50 Imaging Radiology Impressions: ITS Impressions Foot X-Ray 10/29/21 10:18 IMPRESSION: Normal left foot. Medications Medications Current Medications Acetaminophen (Acetaminophen 325 Mg Tablet) 650 mg PO Q6H PRN PRN Reason: Headache/Pain Mild Scale (1-3) Last Admin: 11/01/21 21:34 Dose: 650 mg Documented by: Acetaminophen (Acetaminophen 325 Mg Tablet) 650 mg PO ONCE PRN PRN Reason: Pain, Mild (Pain Scale 1-3) Acetaminophen (Acetaminophen 325 Mg Tablet) 650 mg PO ONCE PRN PRN Reason: Pain, Mild (Pain Scale 1-3) Al Hydroxide/Mg Hydroxide (Magnesium Hydrox/Alum Hydrox 30 Ml Oral.Susp) 30 ml PO Q6H PRN PRN Reason: Heartburn/Nausea Bupropion HCl (Bupropion Hcl Xl 150 Mg Tab.Er.24h) 450 mg PO DAILY [facility] Last Admin: 11/04/21 09:41 Dose: 450 mg Documented by: Hydroxyzine HCl (Hydroxyzine Hcl 25 Mg Tablet) 25 mg PO BID PRN PRN Reason: Anxiety Ibuprofen (Ibuprofen 400 Mg Tablet) 400 mg PO QID PRN PRN Reason: Pain, Moderate (Pain Scale 4-6 Last Admin: 11/03/21 20:21 Dose: 400 mg Documented by: Magnesium Hydroxide (Milk Of Magnesia 30 Ml Oral.Susp) 30 ml PO DAILY PRN PRN Reason: Constipation Ondansetron HCl (Ondansetron Hcl 4 Mg/2 Ml Vial) 4 mg IVPUSH ONCE PRN PRN Reason: Nausea and Vomiting Quetiapine Fumarate (Quetiapine Fumarate 50 Mg Tablet) 50 mg PO BEDTIME [facility] Last Admin: 11/03/21 21:02 Dose: 50 mg Documented by: Quetiapine Fumarate (Quetiapine Fumarate 50 Mg Tablet) 50 mg PO DAILY PRN PRN Reason: Anxiety Trazodone HCl (Trazodone Hcl 50 Mg Tablet) 50 mg PO BEDTIME PRN PRN Reason: Insomnia Last Admin: 11/03/21 21:07 Dose: 50 mg Documented by: Allergies Allergies Allergy/AdvReac Type Severity Reaction Status Date / Time No Known Allergies Allergy Verified 10/23/21 17:36 Assessment & Plan Assessment & Plan (1) MDD (major depressive disorder), recurrent episode, severe: Status: Acute Code(s): F33.2 - Major depressive disorder, recurrent severe without psychotic features Plan Patient is a 56-year-old female with long history of refractory depression, poorly treated with past medication trials who presents for worsening depression in the face of her mother going to a assisted. Patient is a bit of a scattered historian. Formulation: -patient reports depression for decades which she says has never been treated very well with medication. She currently presents as severely depressed with psychomotor retardation. Patient has some minimal support in the community including a therapist. Regarding family psychiatric history patient says that her father was very quiet which leans towards possible genetic contribution. Patient's thought process is a little distracted and she sometimes brings up thoughts unrelated to automobile and property underwriter's question; at this time, automobile and property underwriter interprets this as due to diminished concentration, distractedness and negative symptoms of depression. Discussed case with patient's former outpatient psychiatrist Dr. Thomson who wonders if patient may ASD or be schizotypal; patient has odd behavior at baseline. Numerous medication trials including Depakote and atypicals. Patient may have had some psychotic symptoms in the past; has gotten paranoid at times. Patient had episode where she struggle to interact with her ailing and demented father appropriately, trying to get him to dance and getting angry and swearing at him. Plan: CV; 3 day notice in Q 15 minute checks Increased to Wellbutrin XL to 450mg daily; Patient agrees and has tolerated lower doses; wants to see if this can work or not Continue Seroquel 50 mg q.h.s. ECT # 1 on 11/01/21 ECT #2 on 11/03/21 PENDING ECT #2 for 11/06/21 NPO after midnight for day to day details... Hospital course: 10/26 Patient remains depressed and has been in bed all day. Agrees to increased Wellbutrin and will still consider T MS. She is it ambivalent about all treatment however and talks about discharging tomorrow 10/27 remains depressed; patient is open to ECT as she does not think that she is stable enough to go home and get herself to T MS daily 11/02 remains depressed but a little more outward; skeptical about ECT (and wellbutrin) but will continue 11/04/21 ruminative continue current plan-encouraged pt to allow time for treatment to work. Past medication trials: Zoloft: maybe a little helpful Trazodone Citalopram: No effect Paxil: Unclear if helpful; patient did not want to go higher; Patient reports horrible delirium when getting off it Fluoxetine: No effect Wellbutrin: Some irritability when titrated Ritalin/Adderall: No positive effect; increased anxiety Depakote; no effect Lamictal; maybe lowered irritability but patient stopped it not wanting to take it further Risperdal: No effect Zyprexa: Weight gain, no effect Abilify: No effect Never tried: [place], mirtazapine, TCAs, MAOI's, ECT, TMS, I spent minutes with the patient and/or on the patient floor today, greater than?50% of which was spent counseling/coordinating care. Patient educated on: therapeutic strategies Informed Consent: further education needed Reason for contiued inpatient stay Substantial Risk for: inability to function and rapid decompensation
[2021-11-04] MEDS: QUEtiapine Fumarate 50 MG TABLET PO (20:57)
[2021-11-04] MEDS: traZODone HCL 50 MG TABLET PO (20:57)
[2021-11-05 06:00] VITALS: BP 96/58; PULSE 72; RESP 14; TEMP 35.8; O2SAT 96
[2021-11-05] MEDS: buPROPion HCl XL 150 MG TAB.ER.24H 450 MG PO (09:10)
--- NOTE | 2021-11-05 10:47 | HO.PSYCHPN ---
Subjective Subjective Date of Service: 11/05/21 Reason For Visit: Depression,SI Subjective Notes: Conditional Voluntary Healthcare Proxy: No Guardianship: No Interim History: Continues to question efficacy of treatment plan. Encouraged to allow time for treatment to take effect. Finds support in room-mate who offers guidance which pt appears to be searching for. No specific questions on plan of care today. Medication Compliance: Yes Side effects from medications: No Attending Groups: Intermittent Review of Systems Acute medical concerns: No Medical Review of Systems: unchanged Mental Status Exam Mental Status Exam Patient Appearance: Fatigued Patient Orientation: Person, Place, Time and Situation Level of Consciousness: Alert Patient Behavior: Talkative and Good Eye Contact Mood Description: Depressed Affect Description: Flat Patient Cognition Impaired: No Ability to Follow Directions: Fair Speech Pattern: Perseverating, Soft-Spoken, Delayed and Long Pauses Hallucinations: None Delusions: Paranoid Ideation Perceptual Disturbances: Depersonalization and Derealization Thought Process: Rumination Thought Content: positive for [place] Depressive Symptoms: Feelings of Worthlessness, Hopelessness and Low Self Esteem Judgement: Fair Diagnostics Vital Signs (24Hr): Vital Signs - 24 hr 11/05/21 06:00 Temperature 96.4 F L Pulse Rate 72 Respiratory Rate 14 Blood Pressure 96/58 L Pulse Oximetry 96 BMI result Body Mass Index 23.8 Labs Results: 10/23/21 17:50 10/23/21 17:50 Imaging Radiology Impressions: ITS Impressions Foot X-Ray 10/29/21 10:18 IMPRESSION: Normal left foot. Medications Medications Current Medications Acetaminophen (Acetaminophen 325 Mg Tablet) 650 mg PO Q6H PRN PRN Reason: Headache/Pain Mild Scale (1-3) Last Admin: 11/01/21 21:34 Dose: 650 mg Documented by: Acetaminophen (Acetaminophen 325 Mg Tablet) 650 mg PO ONCE PRN PRN Reason: Pain, Mild (Pain Scale 1-3) Acetaminophen (Acetaminophen 325 Mg Tablet) 650 mg PO ONCE PRN PRN Reason: Pain, Mild (Pain Scale 1-3) Al Hydroxide/Mg Hydroxide (Magnesium Hydrox/Alum Hydrox 30 Ml Oral.Susp) 30 ml PO Q6H PRN PRN Reason: Heartburn/Nausea Bupropion HCl (Bupropion Hcl Xl 150 Mg Tab.Er.24h) 450 mg PO DAILY [place] Last Admin: 11/05/21 09:10 Dose: 450 mg Documented by: Hydroxyzine HCl (Hydroxyzine Hcl 25 Mg Tablet) 25 mg PO BID PRN PRN Reason: Anxiety Ibuprofen (Ibuprofen 400 Mg Tablet) 400 mg PO QID PRN PRN Reason: Pain, Moderate (Pain Scale 4-6 Last Admin: 11/03/21 20:21 Dose: 400 mg Documented by: Magnesium Hydroxide (Milk Of Magnesia 30 Ml Oral.Susp) 30 ml PO DAILY PRN PRN Reason: Constipation Ondansetron HCl (Ondansetron Hcl 4 Mg/2 Ml Vial) 4 mg IVPUSH ONCE PRN PRN Reason: Nausea and Vomiting Quetiapine Fumarate (Quetiapine Fumarate 50 Mg Tablet) 50 mg PO BEDTIME [place] Last Admin: 11/04/21 20:57 Dose: 50 mg Documented by: Quetiapine Fumarate (Quetiapine Fumarate 50 Mg Tablet) 50 mg PO DAILY PRN PRN Reason: Anxiety Trazodone HCl (Trazodone Hcl 50 Mg Tablet) 50 mg PO BEDTIME PRN PRN Reason: Insomnia Last Admin: 11/04/21 20:57 Dose: 50 mg Documented by: Allergies Allergies Allergy/AdvReac Type Severity Reaction Status Date / Time No Known Allergies Allergy Verified 10/23/21 17:36 Assessment & Plan Assessment & Plan (1) MDD (major depressive disorder), recurrent episode, severe: Status: Resolved Code(s): F33.2 - Major depressive disorder, recurrent severe without psychotic features Plan Patient is a 56-year-old female with long history of refractory depression, poorly treated with past medication trials who presents for worsening depression in the face of her mother going to a alf. Patient is a bit of a scattered historian. Formulation: -patient reports depression for decades which she says has never been treated very well with medication. She currently presents as severely depressed with psychomotor retardation. Patient has some minimal support in the community including a therapist. Regarding family psychiatric history patient says that her father was very quiet which leans towards possible genetic contribution. Patient's thought process is a little distracted and she sometimes brings up thoughts unrelated to chief underwriter's question; at this time, chief underwriter interprets this as due to diminished concentration, distractedness and negative symptoms of depression. Discussed case with patient's former outpatient psychiatrist Dr. Thomson who wonders if patient may ASD or be schizotypal; patient has odd behavior at baseline. Numerous medication trials including Depakote and atypicals. Patient may have had some psychotic symptoms in the past; has gotten paranoid at times. Patient had episode where she struggle to interact with her ailing and demented father appropriately, trying to get him to dance and getting angry and swearing at him. Plan: CV; 3 day notice in Q 15 minute checks Increased to Wellbutrin XL to 450mg daily; Patient agrees and has tolerated lower doses; wants to see if this can work or not Continue Seroquel 50 mg q.h.s. ECT # 1 on 11/01/21 ECT #2 on 11/03/21 PENDING ECT #2 for 11/06/21 NPO after midnight for day to day details... Hospital course: 10/26 Patient remains depressed and has been in bed all day. Agrees to increased Wellbutrin and will still consider T MS. She is it ambivalent about all treatment however and talks about discharging tomorrow 10/27 remains depressed; patient is open to ECT as she does not think that she is stable enough to go home and get herself to T MS daily 11/02 remains depressed but a little more outward; skeptical about ECT (and wellbutrin) but will continue 11/05/21- Coverage- continue plan of care. Past medication trials: Zoloft: maybe a little helpful Trazodone Citalopram: No effect Paxil: Unclear if helpful; patient did not want to go higher; Patient reports horrible delirium when getting off it Fluoxetine: No effect Wellbutrin: Some irritability when titrated Ritalin/Adderall: No positive effect; increased anxiety Depakote; no effect Lamictal; maybe lowered irritability but patient stopped it not wanting to take it further Risperdal: No effect Zyprexa: Weight gain, no effect Abilify: No effect Never tried: [place], mirtazapine, TCAs, MAOI's, ECT, TMS, I spent minutes with the patient and/or on the patient floor today, greater than?50% of which was spent counseling/coordinating care. Patient educated on: therapeutic strategies Informed Consent: further education needed Reason for contiued inpatient stay Substantial Risk for: rapid decompensation
[2021-11-05] MEDS: Milk of Magnesia 30 ML ORAL.SUSP PO (19:21)
[2021-11-05] MEDS: traZODone HCL 50 MG TABLET PO (21:06)
[2021-11-05] MEDS: QUEtiapine Fumarate 50 MG TABLET PO (21:07)
[2021-11-06] VITALS (8 sets, daily range): BP systolic 102–136; BP diastolic 63–88; PULSE 68–80; RESP 16–24; TEMP 36.3–37.1; O2SAT 96–100
--- NOTE | 2021-11-06 07:07 | MHC.SHP ---
Pre-Procedural Eval Section A Date of Service: 11/06/21 The patient is an INPATIENT: Yes Changes since office visit: No Cold of Flu in the past 2 weeks, No New Medical Problems, No Changes in Medication and No Patient answered all questions The History & Physical has been completed within 30 days and I have reviewed it.: Yes Section B Chief Complaint: Depression,SI Allergies: Allergies Allergy/AdvReac Type Severity Reaction Status Date / Time No Known Allergies Allergy Verified 10/23/21 17:36 Plan I have reviewed the history and physical and performed a pertinent physical examination on my patient. No changes have occurred unless specified.
--- NOTE | 2021-11-06 07:59 | P.CONAN_ITS ---
[facility] Active Problems Active Problems: All Active Problems (Updated 10/31/21 @ 12:06 by Man Koch MD) Preoperative cardiovascular examination (Acute) MDD (major depressive disorder), recurrent episode, severe (Acute) Depression (Acute) Past Medical History Medical History MDD (major depressive disorder), recurrent episode, severe Family History Family history of problems with anesthesia: No Surgical History History of Problems with Anesthesia: No Social History Social History Household Members: None Housing: Condominium Do you presently have visiting nurse or other home services: No Patient Tobacco Use Status: Never used Tobacco Smoked in Last 30 Days: No e-Cigarette/Vaping Use: Never Used Second Hand Smoke Exposure: No Use of substances other than those prescribed or required for medical reasons: No Currently Displaying Signs/Symptoms of Drug Intoxication Withdrawal: No Any prior treatment program specific to substance use: No Have you been hit, kicked, punched, or otherwise hurt by someone within the past year? If so, by whom?: No Do you feel safe in your current relationship?: No Current Relationship Is there a partner from a previous relationship who is making you feel unsafe now?: No Are you made to feel afraid or neglected: No Are you DNR?: No Advance Directives: No Advance Directives Information Provided: No Advance Directives on File: No Do you have thoughts of harming others: None Do you have a plan to hurt others: No Plan Recently lost weight without trying: No How much weight loss: 2-13 pounds Eating poorly because of decreased appetite: Yes Nutrition screen score: 2 Nutrition Risks: No Nutritional Risk Patient : No : No Poor oral hygiene: No service: No Sexual orientation: Did not discuss Meds Allergies Allergy/AdvReac Type Severity Reaction Status Date / Time No Known Allergies Allergy Verified 10/23/21 17:36 Active Medications: Current Medications Acetaminophen (Acetaminophen 325 Mg Tablet) 650 mg PO Q6H PRN PRN Reason: Headache/Pain Mild Scale (1-3) Last Admin: 11/01/21 21:34 Dose: 650 mg Documented by: Acetaminophen (Acetaminophen 325 Mg Tablet) 650 mg PO ONCE PRN PRN Reason: Pain, Mild (Pain Scale 1-3) Acetaminophen (Acetaminophen 325 Mg Tablet) 650 mg PO ONCE PRN PRN Reason: Pain, Mild (Pain Scale 1-3) Al Hydroxide/Mg Hydroxide (Magnesium Hydrox/Alum Hydrox 30 Ml Oral.Susp) 30 ml PO Q6H PRN PRN Reason: Heartburn/Nausea Bupropion HCl (Bupropion Hcl Xl 150 Mg Tab.Er.24h) 450 mg PO DAILY [place] Last Admin: 11/05/21 09:10 Dose: 450 mg Documented by: Hydroxyzine HCl (Hydroxyzine Hcl 25 Mg Tablet) 25 mg PO BID PRN PRN Reason: Anxiety Ibuprofen (Ibuprofen 400 Mg Tablet) 400 mg PO QID PRN PRN Reason: Pain, Moderate (Pain Scale 4-6 Last Admin: 11/03/21 20:21 Dose: 400 mg Documented by: Magnesium Hydroxide (Milk Of Magnesia 30 Ml Oral.Susp) 30 ml PO DAILY PRN PRN Reason: Constipation Last Admin: 11/05/21 19:21 Dose: 30 ml Documented by: Ondansetron HCl (Ondansetron Hcl 4 Mg/2 Ml Vial) 4 mg IVPUSH ONCE PRN PRN Reason: Nausea and Vomiting Quetiapine Fumarate (Quetiapine Fumarate 50 Mg Tablet) 50 mg PO BEDTIME LANDY Last Admin: 11/05/21 21:07 Dose: 50 mg Documented by: Quetiapine Fumarate (Quetiapine Fumarate 50 Mg Tablet) 50 mg PO DAILY PRN PRN Reason: Anxiety Trazodone HCl (Trazodone Hcl 50 Mg Tablet) 50 mg PO BEDTIME PRN PRN Reason: Insomnia Last Admin: 11/05/21 21:06 Dose: 50 mg Documented by: Home Medications Medication Instructions Recorded Confirmed Last Taken Type bupropion HCl 150 mg 24 hr tablet, 150 mg PO QAM 10/23/21 10/23/21 Unknown History extended release hydroxyzine HCl 25 mg tablet 25 mg PO BID PRN 10/23/21 10/23/21 Unknown History quetiapine 50 mg tablet 50 mg PO BEDTIME 10/23/21 10/23/21 Unknown History quetiapine 50 mg tablet 50 mg PO DAILY PRN 10/23/21 10/23/21 Unknown History Exam Exam Date and Time: November 06, 2021 8129 Height,Weight and Vital Signs: Height 5 ft 6 in Weight 66.9 kg Last Vital Signs Temp 97.4 F 11/06/21 06:17 Pulse 74 11/06/21 06:17 Resp 18 11/06/21 06:17 BP 122/74 11/06/21 06:17 Pulse Ox 96 11/06/21 06:17 Pertinent Lab Results Pertinent Lab Results: Laboratory Tests 10/23/21 10/23/21 10/23/21 16:05 16:06 17:50 WBC 8.3 RBC 4.90 Hgb 15.3 Hct 44.9 MCV 91.6 MCH 31.2 MCHC 34.1 RDW 11.5 Plt Count 292 MPV 9.6 Immature Gran % (Auto) 0.2 Neut % (Auto) 64.6 Lymph % (Auto) 28.7 [place] % (Auto) 5.2 Eos % (Auto) 0.8 Baso % (Auto) 0.5 Lymph # (Auto) 2.4 [place] # (Auto) 0.4 Eos # (Auto) 0.1 Baso # (Auto) 0.0 Abs Immat Gran (auto) 0.02 Absolute Neuts (auto) 5.3 Absolute Nucleated RBC 0.000 Nucleated RBC % (auto) 0.0 Sodium Potassium Chloride Carbon Dioxide Anion Gap BUN Creatinine Estim Creat Clear Calc Estimated GFR Random Glucose Calcium Magnesium Total Bilirubin AST ALT Alkaline Phosphatase Total Protein Albumin Vitamin B12 Folate TSH Free T4 Urine Opiates Screen Not Detected Urine Fentanyl Screen Not Detected Ur Barbiturates Screen Not Detected Ur Phencyclidine Scrn Not Detected Ur Amphetamines Screen Not Detected U Benzodiazepines Scrn Not Detected Urine Cocaine Screen Not Detected U Marijuana (THC) Screen Not Detected Ethyl Alcohol COVID-19 ([facility]) Negative COVID-19 Clin Com See Note 10/23/21 10/23/21 10/25/21 17:50 17:50 08:04 WBC RBC Hgb Hct MCV MCH MCHC RDW Plt Count MPV Immature Gran % (Auto) Neut % (Auto) Lymph % (Auto) [place] % (Auto) Eos % (Auto) Baso % (Auto) Lymph # (Auto) [place] # (Auto) Eos # (Auto) Baso # (Auto) Abs Immat Gran (auto) Absolute Neuts (auto) Absolute Nucleated RBC Nucleated RBC % (auto) Sodium 139 Potassium 4.0 Chloride 101 Carbon Dioxide 30 H Anion Gap 12 BUN 14 Creatinine 0.84 Estim Creat Clear Calc 71.7 Estimated GFR > 60 Random Glucose 135 H Calcium 10.3 H Magnesium 2.2 Total Bilirubin 0.7 AST 17 ALT 19 Alkaline Phosphatase 78 Total Protein 7.6 Albumin 4.6 Vitamin B12 Folate TSH 1.35 Free T4 0.95 Urine Opiates Screen Urine Fentanyl Screen Ur Barbiturates Screen Ur Phencyclidine Scrn Ur Amphetamines Screen U Benzodiazepines Scrn Urine Cocaine Screen U Marijuana (THC) Screen Ethyl Alcohol < 10 COVID-19 ([facility]) COVID-19 Clin Com 10/25/21 08:04 WBC RBC Hgb Hct MCV MCH MCHC RDW Plt Count MPV Immature Gran % (Auto) Neut % (Auto) Lymph % (Auto) [place] % (Auto) Eos % (Auto) Baso % (Auto) Lymph # (Auto) [place] # (Auto) Eos # (Auto) Baso # (Auto) Abs Immat Gran (auto) Absolute Neuts (auto) Absolute Nucleated RBC Nucleated RBC % (auto) Sodium Potassium Chloride Carbon Dioxide Anion Gap BUN Creatinine Estim Creat Clear Calc Estimated GFR Random Glucose Calcium Magnesium Total Bilirubin AST ALT Alkaline Phosphatase Total Protein Albumin Vitamin B12 874 Folate 13.6 TSH Free T4 Urine Opiates Screen Urine Fentanyl Screen Ur Barbiturates Screen Ur Phencyclidine Scrn Ur Amphetamines Screen U Benzodiazepines Scrn Urine Cocaine Screen U Marijuana (THC) Screen Ethyl Alcohol COVID-19 ([facility]) COVID-19 Clin Com Airway Mallampati Class: II TM Dist: >3cm Neck ROM: Full Loose/Missing/Broken Teeth: No Heart: RRR Lungs: CTA Assessment and Plan Assessment Anesthesia Assessment: Anesthesia Plan Discussed and Chart Reviewed Final Anesthetic Review Family History of Problems with Anesthesia: No History of Problems with Anesthesia: No NPO: Yes ASA Class: II Final Preanesthetic Review: Meds/Allgs Chart Reviewed, Consent Obtained/Reviewed and Anes Risks/Benef Reviewed Patient Risk: Low Procedure Risk: Intermediate Anesthetic Plan Anesthetic Plan: GA Disposition: Standard PACU
--- NOTE | 2021-11-06 08:10 | HO.ECTPROC ---
ECT Procedure Note Diagnosis/Treatment Date of Service: 11/06/21 Diagnosis: Major Depressive Disorder Previous ECT Date: 11/06/21 Current Treatment Number: 3 Treatment: Series Interval Clinical Notes: The patient reported improvement of paranoia, mild dysphoria in correlation with chronic pain and stressors. No side effects with previous ECT. she took Klonopin yesterday at 3 pm, no reversion done ECT Settings Device: THYMATRON DGx Electrode Placement: Right Unilateral Program/Pulse Width: 0.25 Energy Percent: 80 Seizure Duration By EEG (in seconds): 15 By Motor Observation (in seconds): 15 Medications Administration General Anesthetic: Etomidate (15) Muscle Relaxant: Succinylcholine (80) Ancillary Medications Anti-emetics: Zofran - Pre ECT Airway Management Airway Management: Bag Mask Ventilation Treatment Recommendations No Changes Recommended: No change (If benzodiazepines used, we will reverse it before procedure) Pt Tolerated Procedure w/o Issue: Yes
[2021-11-06] MEDS: buPROPion HCl XL 150 MG TAB.ER.24H 450 MG PO (09:18)
[2021-11-06] MEDS: Acetaminophen 325 MG TABLET 650 MG PO (09:20)
--- NOTE | 2021-11-06 15:50 | HO.PSYCHPN ---
Subjective Subjective Date of Service: 11/06/21 Reason For Visit: Depression,SI Interim History: Patient reports she thinks her mood might be a little better. She can not clearly say why but says she thinks she is thinking more clearly and her mind is not racing as much. Patient is open to considering that Wellbutrin may be helping. She is also willing to remain on the unit for ECT this Saturday would like to discharge home either that day or the next and do ECT as an outpatient. Patient is still focused on her job. Will sometimes make comments irrelevant to question asked, however this is baseline. Outpatient psychiatrist Dr. Thomson says that most of her depressive bouts were short-lived and that much of her depressed feelings would come from feeling lonely; at baseline her affect was bright/odd Mental Status Exam Mental Status Exam Narrative: Pt is alert and oriented; behavior is cooperative, calm, sometimes distracted; patient is not in distress; dressed in hospital gown, hair combed, adequate hygiene; mood is described as little better and affect congruent, brighter; mostly adequate eye contact; intermittent grimace. Speech is normal volume and rate; no psychomotor retardation present; thought process is goal directed but can be a little tangential; Thought content is on her job, treatment, finance trouble; TC mostly otherwise pertinent to relevant topics; no overt delusional content or paranoid ideations or grandiosity expressed; no SI; no HI. There is no evidence of perceptual disturbance and denies AVH;? Patients insight and judgment are impaired but likely close to baseline. . Diagnostics Vital Signs (24Hr): Vital Signs - 24 hr 11/06/21 06:00 11/06/21 06:17 11/06/21 08:15 Temperature 97.4 F 97.4 F 98.1 F Pulse Rate 74 74 71 Respiratory Rate 18 18 24 H Blood Pressure 122/74 122/74 114/70 Pulse Oximetry 96 96 100 11/06/21 08:20 11/06/21 08:25 11/06/21 08:30 Temperature Pulse Rate 70 71 70 Respiratory Rate 22 H 20 20 Blood Pressure 116/63 109/65 102/67 Pulse Oximetry 100 99 99 11/06/21 08:45 11/06/21 09:27 Temperature 98.7 F 98 F Pulse Rate 68 80 Respiratory Rate 20 16 Blood Pressure 108/64 136/88 Pulse Oximetry 97 98 BMI result Body Mass Index 23.8 Labs Results: 10/23/21 17:50 10/23/21 17:50 Imaging Radiology Impressions: ITS Impressions Foot X-Ray 10/29/21 10:18 IMPRESSION: Normal left foot. Medications Medications Current Medications Acetaminophen (Acetaminophen 325 Mg Tablet) 650 mg PO Q6H PRN PRN Reason: Headache/Pain Mild Scale (1-3) Last Admin: 11/06/21 09:20 Dose: 650 mg Documented by: Acetaminophen (Acetaminophen 325 Mg Tablet) 650 mg PO ONCE PRN PRN Reason: Pain, Mild (Pain Scale 1-3) Acetaminophen (Acetaminophen 325 Mg Tablet) 650 mg PO ONCE PRN PRN Reason: Pain, Mild (Pain Scale 1-3) Al Hydroxide/Mg Hydroxide (Magnesium Hydrox/Alum Hydrox 30 Ml Oral.Susp) 30 ml PO Q6H PRN PRN Reason: Heartburn/Nausea Bupropion HCl (Bupropion Hcl Xl 150 Mg Tab.Er.24h) 450 mg PO DAILY [facility] Last Admin: 11/06/21 09:18 Dose: 450 mg Documented by: Hydroxyzine HCl (Hydroxyzine Hcl 25 Mg Tablet) 25 mg PO BID PRN PRN Reason: Anxiety Ibuprofen (Ibuprofen 400 Mg Tablet) 400 mg PO QID PRN PRN Reason: Pain, Moderate (Pain Scale 4-6 Last Admin: 11/03/21 20:21 Dose: 400 mg Documented by: Magnesium Hydroxide (Milk Of Magnesia 30 Ml Oral.Susp) 30 ml PO DAILY PRN PRN Reason: Constipation Last Admin: 11/05/21 19:21 Dose: 30 ml Documented by: Ondansetron HCl (Ondansetron Hcl 4 Mg/2 Ml Vial) 4 mg IVPUSH ONCE PRN PRN Reason: Nausea and Vomiting Quetiapine Fumarate (Quetiapine Fumarate 50 Mg Tablet) 50 mg PO BEDTIME [facility] Last Admin: 11/05/21 21:07 Dose: 50 mg Documented by: Quetiapine Fumarate (Quetiapine Fumarate 50 Mg Tablet) 50 mg PO DAILY PRN PRN Reason: Anxiety Trazodone HCl (Trazodone Hcl 50 Mg Tablet) 50 mg PO BEDTIME PRN PRN Reason: Insomnia Last Admin: 11/05/21 21:06 Dose: 50 mg Documented by: Allergies Allergies Allergy/AdvReac Type Severity Reaction Status Date / Time No Known Allergies Allergy Verified 10/23/21 17:36 Assessment & Plan Assessment & Plan (1) MDD (major depressive disorder), recurrent episode, severe: Status: Acute Code(s): F33.2 - Major depressive disorder, recurrent severe without psychotic features Plan Patient is a 56-year-old female with long history of refractory depression, poorly treated with past medication trials who presents for worsening depression in the face of her mother going to a care home. Formulation: -patient reports depression for decades which she says has never been treated very well with medication. She currently presents as severely depressed with psychomotor retardation. Patient has some minimal support in the community including a therapist. Regarding family psychiatric history patient says that her father was very quiet which leans towards possible genetic contribution. Patient's thought process is a little distracted and she sometimes brings up thoughts unrelated to resume writer's question; at this time, resume writer interprets this as due to diminished concentration, distractedness and negative symptoms of depression. Discussed case with patient's former outpatient psychiatrist Dr. Thomson who wonders if patient may ASD or be schizotypal; patient has odd behavior at baseline. Numerous medication trials including Depakote and atypicals. Patient may have had some psychotic symptoms in the past; has gotten paranoid at times. Patient had episode where she struggle to interact with her ailing and demented father appropriately, trying to get him to dance and getting angry and swearing at him. Plan: CV; 3 day notice in Q 15 minute checks Increased to Wellbutrin XL to 450mg daily; Patient agrees and has tolerated lower doses; wants to see if this can work or not Continue Seroquel 50 mg q.h.s. ECT # 1 on 11/01/21 ECT #2 on 11/03/21 ECT #3 on 11/06/21 PENDING ECT #3 for 11/08/21 NPO after midnight for day to day details... Hospital course: 10/26 Patient remains depressed and has been in bed all day. Agrees to increased Wellbutrin and will still consider T MS. She is it ambivalent about all treatment however and talks about discharging tomorrow 10/27 remains depressed; patient is open to ECT as she does not think that she is stable enough to go home and get herself to T MS daily 11/02 remains depressed but a little more outward; skeptical about ECT (and wellbutrin) but will continue 11/05/21- Coverage- continue plan of care. 11/06 affect a little brighter. Patient says she thinks her depression is a little better as well; she also says she can not think of more clearly. She is willing to remain on the unit for another ECT session but would like to discharge home and do it as an outpatient following this Saturday. Agrees that perhaps Wellbutrin is helping Past medication trials: Zoloft: maybe a little helpful Trazodone Citalopram: No effect Paxil: Unclear if helpful; patient did not want to go higher; Patient reports horrible delirium when getting off it Fluoxetine: No effect Wellbutrin: Some irritability when titrated Ritalin/Adderall: No positive effect; increased anxiety Depakote; no effect Lamictal; maybe lowered irritability but patient stopped it not wanting to take it further Risperdal: No effect Zyprexa: Weight gain, no effect Abilify: No effect Never tried: [place], mirtazapine, TCAs, MAOI's, ECT, TMS, I spent minutes with the patient and/or on the patient floor today, greater than?50% of which was spent counseling/coordinating care. Patient educated on: medication risk/benefits and ECT Reason for contiued inpatient stay Substantial Risk for: stable for discharge
[2021-11-06] MEDS: QUEtiapine Fumarate 50 MG TABLET PO (21:05)
[2021-11-06] MEDS: traZODone HCL 50 MG TABLET PO ×2 (21:06→22:40)
[2021-11-07 06:00] VITALS: BP 96/51; PULSE 73; RESP 18; TEMP 36.9; O2SAT 96
[2021-11-07] MEDS: buPROPion HCl XL 150 MG TAB.ER.24H 450 MG PO (08:10)
[2021-11-07 16:15] VITALS: BP 97/53; PULSE 74; TEMP 36.9
--- NOTE | 2021-11-07 16:54 | P.PNPSI_ITS ---
Subjective Subjective Date of Service: 11/07/21 Reason For Visit: Depression,SI Interim History: Patient a little brighter. She does think she is a little better and agrees it might be because of the Wellbutrin. She remains skeptical about ECT but agrees to continue. Denies complaints or side effects. No SI Mental Status Exam Mental Status Exam Narrative: Pt is alert and oriented; behavior is cooperative, calm, sometimes distracted; patient is not in distress; dressed in hospital gown, hair combed, adequate hygiene; mood is described as little better and affect congruent, brighter; mostly adequate eye contact; intermittent grimace. Speech is normal volume and rate; no psychomotor retardation present; thought process is goal directed but can be a little tangential; Thought content is on her job, treatment, finance trouble; TC mostly otherwise pertinent to relevant topics; no overt delusional content or paranoid ideations or grandiosity expressed; no SI; no HI. There is no evidence of perceptual disturbance and denies AVH;? Patients insight and judgment are impaired but likely close to baseline. Diagnostics Vital Signs (24Hr): Vital Signs - 24 hr 11/07/21 06:00 Temperature 98.5 F Pulse Rate 73 Respiratory Rate 18 Blood Pressure 96/51 L Pulse Oximetry 96 BMI result Body Mass Index 23.8 Labs Results: 10/23/21 17:50 10/23/21 17:50 Imaging Radiology Impressions: ITS Impressions Foot X-Ray 10/29/21 10:18 IMPRESSION: Normal left foot. Medications Medications Current Medications Acetaminophen (Acetaminophen 325 Mg Tablet) 650 mg PO Q6H PRN PRN Reason: Headache/Pain Mild Scale (1-3) Last Admin: 11/06/21 09:20 Dose: 650 mg Documented by: Acetaminophen (Acetaminophen 325 Mg Tablet) 650 mg PO ONCE PRN PRN Reason: Pain, Mild (Pain Scale 1-3) Acetaminophen (Acetaminophen 325 Mg Tablet) 650 mg PO ONCE PRN PRN Reason: Pain, Mild (Pain Scale 1-3) Al Hydroxide/Mg Hydroxide (Magnesium Hydrox/Alum Hydrox 30 Ml Oral.Susp) 30 ml PO Q6H PRN PRN Reason: Heartburn/Nausea Bupropion HCl (Bupropion Hcl Xl 150 Mg Tab.Er.24h) 450 mg PO DAILY [facility] Last Admin: 11/07/21 08:10 Dose: 450 mg Documented by: Hydroxyzine HCl (Hydroxyzine Hcl 25 Mg Tablet) 25 mg PO BID PRN PRN Reason: Anxiety Ibuprofen (Ibuprofen 400 Mg Tablet) 400 mg PO QID PRN PRN Reason: Pain, Moderate (Pain Scale 4-6 Last Admin: 11/03/21 20:21 Dose: 400 mg Documented by: Magnesium Hydroxide (Milk Of Magnesia 30 Ml Oral.Susp) 30 ml PO DAILY PRN PRN Reason: Constipation Last Admin: 11/05/21 19:21 Dose: 30 ml Documented by: Ondansetron HCl (Ondansetron Hcl 4 Mg/2 Ml Vial) 4 mg IVPUSH ONCE PRN PRN Reason: Nausea and Vomiting Quetiapine Fumarate (Quetiapine Fumarate 50 Mg Tablet) 50 mg PO BEDTIME LANDY Last Admin: 11/06/21 21:05 Dose: 50 mg Documented by: Quetiapine Fumarate (Quetiapine Fumarate 50 Mg Tablet) 50 mg PO DAILY PRN PRN Reason: Anxiety Trazodone HCl (Trazodone Hcl 50 Mg Tablet) 50 mg PO BEDTIME PRN PRN Reason: Insomnia Last Admin: 11/06/21 22:40 Dose: 50 mg Documented by: Allergies Allergies Allergy/AdvReac Type Severity Reaction Status Date / Time No Known Allergies Allergy Verified 10/23/21 17:36 Assessment & Plan Assessment & Plan (1) MDD (major depressive disorder), recurrent episode, severe: Status: Acute Code(s): F33.2 - Major depressive disorder, recurrent severe without psychotic features Plan Patient is a 56-year-old female with long history of refractory depression, poorly treated with past medication trials who presents for worsening depression in the face of her mother going to a long-term. Formulation: -patient reports depression for decades which she says has never been treated very well with medication. She currently presents as severely depressed with psychomotor retardation. Patient has some minimal support in the community incl uding a therapist. Regarding family psychiatric history patient says that her father was very quiet which leans towards possible genetic contribution. Patient's thought process is a little distracted and she sometimes brings up thoughts unrelated to automobile service writer's question; at this time, automobile service writer interprets this as due to diminished concentration, distractedness and negative symptoms of depression. Discussed case with patient's former outpatient psychiatrist Dr. Thomson who wonders if patient may ASD or be schizotypal; patient has odd behavior at baseline. Numerous medication trials including Depakote and atypicals. Patient may have had some psychotic symptoms in the past; has gotten paranoid at times. Patient had episode where she struggle to interact with her ailing and demented father appropriately, trying to get him to dance and getting angry and swearing at him. Plan: CV; 3 day notice in Q 15 minute checks Continue Wellbutrin XL to 450mg daily; (increased this admission) Patient agrees and has tolerated lower doses; wants to see if this can work or not Continue Seroquel 50 mg q.h.s. ECT # 1 on 11/01/21 ECT #2 on 11/03/21 ECT #3 on 11/06/21 PENDING ECT #3 for 11/08/21 NPO after midnight for day to day details... Hospital course: 10/26 Patient remains depressed and has been in bed all day. Agrees to increased Wellbutrin and will still consider T MS. She is it ambivalent about all treatment however and talks about discharging tomorrow 10/27 remains depressed; patient is open to ECT as she does not think that she is stable enough to go home and get herself to T MS daily 11/02 remains depressed but a little more outward; skeptical about ECT (and wellbutrin) but will continue 11/05/21- Coverage- continue plan of care. 11/06 affect a little brighter. Patient says she thinks her depression is a little better as well; she also says she can not think of more clearly. She is willing to remain on the unit for another ECT session but would like to discharge home and do it as an outpatient following this Saturday. Agrees that perhaps Wellbutrin is helping 11/07 patient agrees to remain for ECT tomorrow however wants to discharge by . Heating Technician agrees that she is stable, not in imminent risk for harm to self or others and is okay to go home if she wants to. She says she will continue ECT as an outpatient. Heating Technician however does encourage her to remain on the unit little longer so that she can continue getting ECT as she has some ambivalence about continuing the course however she remains pretty sure she wants to discharge. Past medication trials: Zoloft: maybe a little helpful Trazodone Citalopram: No effect Paxil: Unclear if helpful; patient did not want to go higher; Patient reports horrible delirium when getting off it Fluoxetine: No effect Wellbutrin: Some irritability when titrated Ritalin/Adderall: No positive effect; increased anxiety Depakote; no effect Lamictal; maybe lowered irritability but patient stopped it not wanting to take it further Risperdal: No effect Zyprexa: Weight gain, no effect Abilify: No effect Never tried: [place], mirtazapine, TCAs, MAOI's, ECT, TMS, I spent minutes with the patient and/or on the patient floor today, greater than?50% of which was spent counseling/coordinating care. Patient educated on: medication risk/benefits and ECT Informed Consent: further education needed Reason for contiued inpatient stay Substantial Risk for: stable for discharge
[2021-11-07] MEDS: traZODone HCL 50 MG TABLET PO (20:08)
[2021-11-07] MEDS: QUEtiapine Fumarate 50 MG TABLET PO (20:08)
[2021-11-07] MEDS: Ibuprofen 400 MG TABLET PO (20:08)
[2021-11-08] VITALS (10 sets, daily range): BP systolic 96–126; BP diastolic 50–102; PULSE 66–118; RESP 14–20; TEMP 36.4–36.9; O2SAT 92–99
--- NOTE | 2021-11-08 06:39 | HO.ANESPROP2 ---
[facility] Active Problems Active Problems: All Active Problems (Updated 10/31/21 @ 12:06 by Man Koch MD) Preoperative cardiovascular examination (Acute) MDD (major depressive disorder), recurrent episode, severe (Acute) Depression (Acute) Past Medical History Medical History MDD (major depressive disorder), recurrent episode, severe Family History Family history of problems with anesthesia: No Surgical History History of Problems with Anesthesia: No Social History Social History Household Members: None Housing: Condominium Do you presently have visiting nurse or other home services: No Patient Tobacco Use Status: Never used Tobacco Smoked in Last 30 Days: No e-Cigarette/Vaping Use: Never Used Second Hand Smoke Exposure: No Use of substances other than those prescribed or required for medical reasons: No Currently Displaying Signs/Symptoms of Drug Intoxication Withdrawal: No Any prior treatment program specific to substance use: No Have you been hit, kicked, punched, or otherwise hurt by someone within the past year? If so, by whom?: No Do you feel safe in your current relationship?: No Current Relationship Is there a partner from a previous relationship who is making you feel unsafe now?: No Are you made to feel afraid or neglected: No Are you DNR?: No Advance Directives: No Advance Directives Information Provided: No Advance Directives on File: No Do you have thoughts of harming others: None Do you have a plan to hurt others: No Plan Recently lost weight without trying: No How much weight loss: 2-13 pounds Eating poorly because of decreased appetite: Yes Nutrition screen score: 2 Nutrition Risks: No Nutritional Risk Patient : No : No Poor oral hygiene: No service: No Sexual orientation: Did not discuss Meds Allergies Allergy/AdvReac Type Severity Reaction Status Date / Time No Known Allergies Allergy Verified 10/23/21 17:36 Active Medications: Current Medications Acetaminophen (Acetaminophen 325 Mg Tablet) 650 mg PO Q6H PRN PRN Reason: Headache/Pain Mild Scale (1-3) Last Admin: 11/06/21 09:20 Dose: 650 mg Acetaminophen (Acetaminophen 325 Mg Tablet) 650 mg PO ONCE PRN PRN Reason: Pain, Mild (Pain Scale 1-3) Acetaminophen (Acetaminophen 325 Mg Tablet) 650 mg PO ONCE PRN PRN Reason: Pain, Mild (Pain Scale 1-3) Al Hydroxide/Mg Hydroxide (Magnesium Hydrox/Alum Hydrox 30 Ml Oral.Susp) 30 ml PO Q6H PRN PRN Reason: Heartburn/Nausea Bupropion HCl (Bupropion Hcl Xl 150 Mg Tab.Er.24h) 450 mg PO DAILY [facility] Last Admin: 11/07/21 08:10 Dose: 450 mg Hydroxyzine HCl (Hydroxyzine Hcl 25 Mg Tablet) 25 mg PO BID PRN PRN Reason: Anxiety Ibuprofen (Ibuprofen 400 Mg Tablet) 400 mg PO QID PRN PRN Reason: Pain, Moderate (Pain Scale 4-6 Last Admin: 11/07/21 20:08 Dose: 400 mg Magnesium Hydroxide (Milk Of Magnesia 30 Ml Oral.Susp) 30 ml PO DAILY PRN PRN Reason: Constipation Last Admin: 11/05/21 19:21 Dose: 30 ml Ondansetron HCl (Ondansetron Hcl 4 Mg/2 Ml Vial) 4 mg IVPUSH ONCE PRN PRN Reason: Nausea and Vomiting Quetiapine Fumarate (Quetiapine Fumarate 50 Mg Tablet) 50 mg PO BEDTIME [facility] Last Admin: 11/07/21 20:08 Dose: 50 mg Quetiapine Fumarate (Quetiapine Fumarate 50 Mg Tablet) 50 mg PO DAILY PRN PRN Reason: Anxiety Trazodone HCl (Trazodone Hcl 50 Mg Tablet) 50 mg PO BEDTIME PRN PRN Reason: Insomnia Last Admin: 11/07/21 20:08 Dose: 50 mg Home Medications Medication Instructions Recorded Confirmed Last Taken Type bupropion HCl 150 mg 24 hr tablet, 150 mg PO QAM 10/23/21 10/23/21 Unknown History extended release hydroxyzine HCl 25 mg tablet 25 mg PO BID PRN Anxiety 10/23/21 10/23/21 Unknown History quetiapine 50 mg tablet 50 mg PO BEDTIME 10/23/21 10/23/21 Unknown History quetiapine 50 mg tablet 50 mg PO DAILY PRN Anxiety 10/23/21 10/23/21 Unknown History Exam Exam Date and Time: November 08, 2021 0639 Height,Weight and Vital Signs: Height 5 ft 6 in Weight 66.9 kg Last Vital Signs Temp 97.8 F 11/08/21 06:37 Pulse 66 11/08/21 06:37 Resp 20 11/08/21 06:37 BP 104/57 L 11/08/21 06:37 Pulse Ox 98 11/08/21 06:37 O2 Del Method 11/08/21 06:37 O2 Flow Rate 2 11/06/21 08:25 Pertinent Lab Results Pertinent Lab Results: Laboratory Tests 10/23/21 10/23/21 10/23/21 16:05 16:06 17:50 WBC 8.3 RBC 4.90 Hgb 15.3 Hct 44.9 MCV 91.6 MCH 31.2 MCHC 34.1 RDW 11.5 Plt Count 292 MPV 9.6 Immature Gran % (Auto) 0.2 Neut % (Auto) 64.6 Lymph % (Auto) 28.7 [place] % (Auto) 5.2 Eos % (Auto) 0.8 Baso % (Auto) 0.5 Lymph # (Auto) 2.4 [place] # (Auto) 0.4 Eos # (Auto) 0.1 Baso # (Auto) 0.0 Abs Immat Gran (auto) 0.02 Absolute Neuts (auto) 5.3 Absolute Nucleated RBC 0.000 Nucleated RBC % (auto) 0.0 Sodium Potassium Chloride Carbon Dioxide Anion Gap BUN Creatinine Estim Creat Clear Calc Estimated GFR Random Glucose Calcium Magnesium Total Bilirubin AST ALT Alkaline Phosphatase Total Protein Albumin Vitamin B12 Folate TSH Free T4 Urine Opiates Screen Not Detected Urine Fentanyl Screen Not Detected Ur Barbiturates Screen Not Detected Ur Phencyclidine Scrn Not Detected Ur Amphetamines Screen Not Detected U Benzodiazepines Scrn Not Detected Urine Cocaine Screen Not Detected U Marijuana (THC) Screen Not Detected Ethyl Alcohol COVID-19 ([facility]) Negative COVID-19 Clin Com See Note 10/23/21 10/23/21 10/25/21 17:50 17:50 08:04 WBC RBC Hgb Hct MCV MCH MCHC RDW Plt Count MPV Immature Gran % (Auto) Neut % (Auto) Lymph % (Auto) [place] % (Auto) Eos % (Auto) Baso % (Auto) Lymph # (Auto) [place] # (Auto) Eos # (Auto) Baso # (Auto) Abs Immat Gran (auto) Absolute Neuts (auto) Absolute Nucleated RBC Nucleated RBC % (auto) Sodium 139 Potassium 4.0 Chloride 101 Carbon Dioxide 30 H Anion Gap 12 BUN 14 Creatinine 0.84 Estim Creat Clear Calc 71.7 Estimated GFR > 60 Random Glucose 135 H Calcium 10.3 H Magnesium 2.2 Total Bilirubin 0.7 AST 17 ALT 19 Alkaline Phosphatase 78 Total Protein 7.6 Albumin 4.6 Vitamin B12 Folate TSH 1.35 Free T4 0.95 Urine Opiates Screen Urine Fentanyl Screen Ur Barbiturates Screen Ur Phencyclidine Scrn Ur Amphetamines Screen U Benzodiazepines Scrn Urine Cocaine Screen U Marijuana (THC) Screen Ethyl Alcohol < 10 COVID-19 ([facility]) COVID-19 Intersect ENT Com 10/25/21 08:04 WBC RBC Hgb Hct MCV MCH MCHC RDW Plt Count MPV Immature Gran % (Auto) Neut % (Auto) Lymph % (Auto) [place] % (Auto) Eos % (Auto) Baso % (Auto) Lymph # (Auto) [place] # (Auto) Eos # (Auto) Baso # (Auto) Abs Immat Gran (auto) Absolute Neuts (auto) Absolute Nucleated RBC Nucleated RBC % (auto) Sodium Potassium Chloride Carbon Dioxide Anion Gap BUN Creatinine Estim Creat Clear Calc Estimated GFR Random Glucose Calcium Magnesium Total Bilirubin AST ALT Alkaline Phosphatase Total Protein Albumin Vitamin B12 874 Folate 13.6 TSH Free T4 Urine Opiates Screen Urine Fentanyl Screen Ur Barbiturates Screen Ur Phencyclidine Scrn Ur Amphetamines Screen U Benzodiazepines Scrn Urine Cocaine Screen U Marijuana (THC) Screen Ethyl Alcohol COVID-19 ([facility]) COVID-19 Clin Com Airway Mallampati Class: II TM Dist: >3cm Neck ROM: Full Heart: rrr Lungs: cta Assessment and Plan Assessment Anesthesia Assessment: Anesthesia Plan Discussed and Chart Reviewed Final Anesthetic Review Family History of Problems with Anesthesia: No History of Problems with Anesthesia: No NPO: Yes ASA Class: III Final Preanesthetic Review: No Changes in Pt Med Stat, Meds/Allgs Chart Reviewed and Consent Obtained/Reviewed Patient Risk: Intermediate Procedure Risk: Intermediate Anesthetic Plan Anesthetic Plan: GA Disposition: Standard PACU
--- NOTE | 2021-11-08 07:08 | MHC.SHP ---
Pre-Procedural Eval Section A Date of Service: 11/08/21 The patient is an INPATIENT: Yes Changes since office visit: No Cold of Flu in the past 2 weeks, No New Medical Problems, No Changes in Medication and No Patient answered all questions The History & Physical has been completed within 30 days and I have reviewed it.: Yes Section B Chief Complaint: Depression,SI Allergies: Allergies Allergy/AdvReac Type Severity Reaction Status Date / Time No Known Allergies Allergy Verified 10/23/21 17:36 Plan I have reviewed the history and physical and performed a pertinent physical examination on my patient. No changes have occurred unless specified.
--- NOTE | 2021-11-08 07:08 | HO.ECTPROC ---
ECT Procedure Note Diagnosis/Treatment Date of Service: 11/08/21 Diagnosis: Major Depressive Disorder Previous ECT Date: 11/06/21 Current Treatment Number: 4 Interval Clinical Notes: The patient reported thtat she didn't have side effects with previous ECT. ECT Settings Device: THYMATRON DGx Electrode Placement: Right Unilateral Program/Pulse Width: 0.25 Energy Percent: 85 Seizure Duration By EEG (in seconds): 9 By Motor Observation (in seconds): 9 Medications Administration General Anesthetic: Etomidate (15) Muscle Relaxant: Succinylcholine (80) Ancillary Medications Anti-emetics: Zofran - Pre ECT Airway Management Airway Management: Bag Mask Ventilation Treatment Recommendations Electrode Placement: Right Unilateral Program/Pulse Width: 0.50 Energy Percent: 80 Pt Tolerated Procedure w/o Issue: Yes
[2021-11-08] MEDS: buPROPion HCl XL 150 MG TAB.ER.24H 450 MG PO (08:36)
[2021-11-08] MEDS: Acetaminophen 325 MG TABLET 650 MG PO (08:37)
--- NOTE | 2021-11-08 10:03 | HO.PSYCHPN ---
Subjective Subjective Date of Service: 11/08/21 Reason For Visit: Depression,SI Interim History: Patient brighter. She says she continues to think she is feeling a little better. She also continues to say she does not have racing thoughts and is overall not as anxious. She continues to have negative thoughts about her job but says this will probably always be true and is not making it a part of the equation calculating her symptoms. . Patient has been ambivalent about whether to remain on the unit for ECT or continue as an outpatient. After talking with her sister, she agrees to remain on the unit for ECT on Saturday and go home after that. She is organizing a ride to and from ECT to continue as an outpatient which she plans to do. Printing Sign Machine Operator mentioned socialization training skills which her outpatient psychiatrist had mentioned to her in the past; patient is mildly curious but not overly eager to pursue Mental Status Exam Mental Status Exam Narrative: Pt is alert and oriented; behavior is cooperative, calm, sometimes distracted; patient is not in distress; dressed in casual cloths, hair combed, adequate hygiene; mood is described as little better and affect congruent, brighter; mostly adequate eye contact; intermittent grimace but a little less. Speech is normal volume and rate; no psychomotor retardation present; thought process is goal directed but at times brings up off-topic subjects; Thought content is on her job, treatment, finance trouble; TC otherwise pertinent to relevant topics; no overt delusional content or paranoid ideations or grandiosity expressed; no SI; no HI. There is no evidence of perceptual disturbance and denies AVH;? Patients insight and judgment are impaired but likely close to baseline. Diagnostics Vital Signs (24Hr): Vital Signs - 24 hr 11/07/21 16:15 11/08/21 06:30 11/08/21 06:00 Temperature 98.4 F 98.3 F 98.3 F Pulse Rate 74 118 H 118 H Respiratory Rate 14 14 Blood Pressure 97/53 L 96/64 96/64 Pulse Oximetry 92 92 Oxygen Delivery Method Oxygen Flow Rate 11/08/21 06:37 11/08/21 07:24 11/08/21 07:29 Temperature 97.8 F 97.6 F Pulse Rate 66 77 68 Respiratory Rate 20 16 16 Blood Pressure 104/57 L 126/102 H 111/51 L Pulse Oximetry 98 99 98 Oxygen Delivery Method Room Air Nasal Cannula Nasal Cannula Oxygen Flow Rate 2 2 11/08/21 07:34 11/08/21 07:39 11/08/21 07:54 Temperature 98.4 F Pulse Rate 66 68 70 Respiratory Rate 16 16 18 Blood Pressure 98/51 L 106/53 L 102/50 L Pulse Oximetry 99 98 97 Oxygen Delivery Method Nasal Cannula Room Air Room Air Oxygen Flow Rate 2 11/08/21 08:14 Temperature 97.6 F Pulse Rate 69 Respiratory Rate 16 Blood Pressure 102/64 Pulse Oximetry 97 Oxygen Delivery Method Oxygen Flow Rate BMI result Body Mass Index 23.8 Labs Results: 10/23/21 17:50 10/23/21 17:50 Imaging Radiology Impressions: ITS Impressions Foot X-Ray 10/29/21 10:18 IMPRESSION: Normal left foot. Medications Medications Current Medications Acetaminophen (Acetaminophen 325 Mg Tablet) 650 mg PO Q6H PRN PRN Reason: Headache/Pain Mild Scale (1-3) Last Admin: 11/08/21 08:37 Dose: 650 mg Acetaminophen (Acetaminophen 325 Mg Tablet) 650 mg PO ONCE PRN PRN Reason: Pain, Mild (Pain Scale 1-3) Acetaminophen (Acetaminophen 325 Mg Tablet) 650 mg PO ONCE PRN PRN Reason: Pain, Mild (Pain Scale 1-3) Al Hydroxide/Mg Hydroxide (Magnesium Hydrox/Alum Hydrox 30 Ml Oral.Susp) 30 ml PO Q6H PRN PRN Reason: Heartburn/Nausea Bupropion HCl (Bupropion Hcl Xl 150 Mg Tab.Er.24h) 450 mg PO DAILY [facility] Last Admin: 11/08/21 08:36 Dose: 450 mg Hydroxyzine HCl (Hydroxyzine Hcl 25 Mg Tablet) 25 mg PO BID PRN PRN Reason: Anxiety Ibuprofen (Ibuprofen 400 Mg Tablet) 400 mg PO QID PRN PRN Reason: Pain, Moderate (Pain Scale 4-6 Last Admin: 11/07/21 20:08 Dose: 400 mg Magnesium Hydroxide (Milk Of Magnesia 30 Ml Oral.Susp) 30 ml PO DAILY PRN PRN Reason: Constipation Last Admin: 11/05/21 19:21 Dose: 30 ml Ondansetron HCl (Ondansetron Hcl 4 Mg/2 Ml Vial) 4 mg IVPUSH ONCE PRN PRN Reason: Nausea and Vomiting Quetiapine Fumarate (Quetiapine Fumarate 50 Mg Tablet) 50 mg PO BEDTIME [facility] Last Admin: 11/07/21 20:08 Dose: 50 mg Quetiapine Fumarate (Quetiapine Fumarate 50 Mg Tablet) 50 mg PO DAILY PRN PRN Reason: Anxiety Trazodone HCl (Trazodone Hcl 50 Mg Tablet) 50 mg PO BEDTIME PRN PRN Reason: Insomnia Last Admin: 11/07/21 20:08 Dose: 50 mg Allergies Allergies Allergy/AdvReac Type Severity Reaction Status Date / Time No Known Allergies Allergy Verified 10/23/21 17:36 Assessment & Plan Assessment & Plan (1) MDD (major depressive disorder), recurrent episode, severe: Status: Acute Code(s): F33.2 - Major depressive disorder, recurrent severe without psychotic features Plan Patient is a 56-year-old female with long history of refractory depression, poorly treated with past medication trials who presents for worsening depression in the face of her mother going to a snf. Formulation: -patient reports depression for decades which she says has never been treated very well with medication. She currently presents as severely depressed with psychomotor retardation. Patient has some minimal support in the community including a therapist. Regarding family psychiatric history patient says that her father was very quiet which leans towards possible genetic contribution. Patient's thought process is a little distracted and she sometimes brings up thoughts unrelated to marketing copywriter's question; at this time, marketing copywriter interprets this as due to diminished concentration, distractedness and negative symptoms of depression. Discussed case with patient's former outpatient psychiatrist Dr. Thomson who wonders if patient may ASD or be schizotypal; patient has odd behavior at baseline. Numerous medication trials including Depakote and atypicals. Patient may have had some psychotic symptoms in the past; has gotten paranoid at times. Patient had episode where she struggle to interact with her ailing and demented father appropriately, trying to get him to dance and getting angry and swearing at him. Plan: CV; 3 day notice in Q 15 minute checks Continue Wellbutrin XL to 450mg daily; (increased this admission) Patient agrees and has tolerated lower doses; wants to see if this can work or not Continue Seroquel 50 mg q.h.s. ECT # 1 on 11/01/21 ECT #2 on 11/03/21 ECT #3 on 11/06/21 ECT #4 on 11/08/21 PENDING ECT #3 for 11/10/21 NPO after midnight for day to day details... Hospital course: 10/26 Patient remains depressed and has been in bed all day. Agrees to increased Wellbutrin and will still consider T MS. She is it ambivalent about all treatment however and talks about discharging tomorrow 10/27 remains depressed; patient is open to ECT as she does not think that she is stable enough to go home and get herself to T [facility] daily 11/02 remains depressed but a little more outward; skeptical about ECT (and wellbutrin) but will continue 11/05/21- Coverage- continue plan of care. 11/06 affect a little brighter. Patient says she thinks her depression is a little better as well; she also says she can not think of more clearly. She is willing to remain on the unit for another ECT session but would like to discharge home and do it as an outpatient following this Saturday. Agrees that perhaps Wellbutrin is helping 11/07 patient agrees to remain for ECT tomorrow however wants to discharge by . Printing Sign Machine Operator agrees that she is stable, not in imminent risk for harm to self or others and is okay to go home if she wants to. She says she will continue ECT as an outpatient. Printing Sign Machine Operator however does encourage her to remain on the unit little longer so that she can continue getting ECT as she has some ambivalence about continuing the course however she remains pretty sure she wants to discharge. 11/08 mood remains improved, anxiety down and she feels she has more clear thinking. Wants to continue ECT but likely as an outpatient. No SI. Unclear if improvement is due to Wellbutrin or ECT or both Past medication trials: Zoloft: maybe a little helpful Trazodone Citalopram: No effect Paxil: Unclear if helpful; patient did not want to go higher; Patient reports horrible delirium when getting off it Fluoxetine: No effect Wellbutrin: Some irritability when titrated Ritalin/Adderall: No positive effect; increased anxiety Depakote; no effect Lamictal; maybe lowered irritability but patient stopped it not wanting to take it further Risperdal: No effect Zyprexa: Weight gain, no effect Abilify: No effect Never tried: [place], mirtazapine, TCAs, MAOI's, ECT, TMS, I spent minutes with the patient and/or on the patient floor today, greater than?50% of which was spent counseling/coordinating care. Patient educated on: medication risk/benefits, ECT and therapeutic strategies Informed Consent: understands Reason for contiued inpatient stay Substantial Risk for: med/psych decompensation
[2021-11-08] MEDS: traZODone HCL 50 MG TABLET PO (21:42)
[2021-11-08] MEDS: QUEtiapine Fumarate 50 MG TABLET PO (21:42)
[2021-11-09] MEDS: buPROPion HCl XL 150 MG TAB.ER.24H 450 MG PO (08:14)
[2021-11-09] MEDS: Milk of Magnesia 30 ML ORAL.SUSP PO (08:20)
[2021-11-09 08:44] VITALS: BP 99/53; PULSE 79; RESP 14; TEMP 36.6; O2SAT 95
--- NOTE | 2021-11-09 12:13 | HO.PSYCHPN ---
Subjective Subjective Date of Service: 11/09/21 Reason For Visit: Depression,SI Interim History: Late entry for patient seen on 11/09 Patient reports mood is better and that her mind remains less racing. She finds herself less anxious. Patient would like to discharge tomorrow after ECT and will continue ECT as an outpatient. No SI. She says that compared to her regular self she is about an 8/10, 10 being her regular self. Mental Status Exam Mental Status Exam Narrative: Pt is alert and oriented; behavior is cooperative, calm, sometimes distracted; patient is not in distress; dressed in casual cloths, hair combed, adequate hygiene; mood is described as a little better and affect congruent, brighter; mostly adequate eye contact; intermittent grimace but a little less. Speech is normal volume and rate; no psychomotor retardation present; thought process is goal directed but at times brings up off-topic subjects; Thought content is on her job, treatment, finance trouble; TC otherwise pertinent to relevant topics; no overt delusional content or paranoid ideations or grandiosity expressed; no SI; no HI. There is no evidence of perceptual disturbance and denies AVH;? Patients insight and judgment are impaired but likely close to baseline. Diagnostics Vital Signs (24Hr): Vital Signs - 24 hr 11/09/21 20:13 11/10/21 06:42 11/10/21 07:15 Temperature 98.0 F 97.2 F 97.9 F Pulse Rate 85 68 72 Respiratory Rate 18 18 18 Blood Pressure 117/64 92/42 L 102/52 L Pulse Oximetry 96 95 96 Oxygen Delivery Method Room Air Room Air Room Air Oxygen Flow Rate 11/10/21 07:40 11/10/21 07:45 11/10/21 07:50 Temperature 83 F L Pulse Rate 72 65 78 Respiratory Rate 16 15 13 Blood Pressure 156/93 H 153/77 H 120/60 Pulse Oximetry 100 98 96 Oxygen Delivery Method Nasal Cannula Nasal Cannula Room Air Oxygen Flow Rate 2 2 11/10/21 07:55 11/10/21 08:10 11/10/21 08:25 Temperature 98.1 F Pulse Rate 76 76 70 Respiratory Rate 16 17 17 Blood Pressure 123/66 112/48 L 110/62 Pulse Oximetry 96 96 97 Oxygen Delivery Method Room Air Nasal Cannula Room Air Oxygen Flow Rate 2 11/10/21 08:51 Temperature 98 F Pulse Rate 88 Respiratory Rate 14 Blood Pressure 130/68 Pulse Oximetry Oxygen Delivery Method Oxygen Flow Rate BMI result Body Mass Index 24.3 Labs Results: 10/23/21 17:50 10/23/21 17:50 Imaging Radiology Impressions: ITS Impressions Foot X-Ray 10/29/21 10:18 IMPRESSION: Normal left foot. Medications Medications Current Medications Acetaminophen (Acetaminophen 325 Mg Tablet) 650 mg PO Q6H PRN PRN Reason: Headache/Pain Mild Scale (1-3) Last Admin: 11/10/21 08:37 Dose: 650 mg Acetaminophen (Acetaminophen 325 Mg Tablet) 650 mg PO ONCE PRN PRN Reason: Pain, Mild (Pain Scale 1-3) Acetaminophen (Acetaminophen 325 Mg Tablet) 650 mg PO ONCE PRN PRN Reason: Pain, Mild (Pain Scale 1-3) Al Hydroxide/Mg Hydroxide (Magnesium Hydrox/Alum Hydrox 30 Ml Oral.Susp) 30 ml PO Q6H PRN PRN Reason: Heartburn/Nausea Bupropion HCl (Bupropion Hcl Xl 150 Mg Tab.Er.24h) 450 mg PO DAILY [facility] Last Admin: 11/10/21 08:36 Dose: 450 mg Hydroxyzine HCl (Hydroxyzine Hcl 25 Mg Tablet) 25 mg PO BID PRN PRN Reason: Anxiety Lactated Ringer's (Lr) 1,000 mls @ 50 mls/hr IVCONT .Q20H [facility] Ibuprofen (Ibuprofen 400 Mg Tablet) 400 mg PO QID PRN PRN Reason: Pain, Moderate (Pain Scale 4-6 Last Admin: 11/09/21 20:17 Dose: 400 mg Magnesium Hydroxide (Milk Of Magnesia 30 Ml Oral.Susp) 30 ml PO DAILY PRN PRN Reason: Constipation Last Admin: 11/09/21 08:20 Dose: 30 ml Ondansetron HCl (Ondansetron Hcl 4 Mg/2 Ml Vial) 4 mg IVPUSH ONCE PRN PRN Reason: Nausea and Vomiting Quetiapine Fumarate (Quetiapine Fumarate 50 Mg Tablet) 50 mg PO BEDTIME [facility] Last Admin: 11/09/21 21:05 Dose: 50 mg Quetiapine Fumarate (Quetiapine Fumarate 50 Mg Tablet) 50 mg PO DAILY PRN PRN Reason: Anxiety Trazodone HCl (Trazodone Hcl 50 Mg Tablet) 50 mg PO BEDTIME PRN PRN Reason: Insomnia Last Admin: 11/09/21 21:05 Dose: 50 mg Allergies Allergies Allergy/AdvReac Type Severity Reaction Status Date / Time No Known Allergies Allergy Verified 10/23/21 17:36 Assessment & Plan Assessment & Plan (1) MDD (major depressive disorder), recurrent episode, severe: Status: Acute Code(s): F33.2 - Major depressive disorder, recurrent severe without psychotic features Plan Patient is a 56-year-old female with long history of refractory depression, poorly treated with past medication trials who presents for worsening depression in the face of her mother going to a group home. Formulation: -patient reports depression for decades which she says has never been treated very well with medication. She currently presents as severely depressed with psychomotor retardation. Patient has some minimal support in the community including a therapist. Regarding family psychiatric history patient says that her father was very quiet which leans towards possible genetic contribution. Patient's thought process is a little distracted and she sometimes brings up thoughts unrelated to advertising copywriter's question; at this time, advertising copywriter interprets this as due to diminished concentration, distractedness and negative symptoms of depression. Discussed case with patient's former outpatient psychiatrist Dr. Thomson who wonders if patient may ASD or be schizotypal; patient has odd behavior at baseline. Numerous medication trials including Depakote and atypicals. Patient may have had some psychotic symptoms in the past; has gotten paranoid at times. Patient had episode where she struggle to interact with her ailing and demented father appropriately, trying to get him to dance and getting angry and swearing at him. Plan: CV; 3 day notice in Q 15 minute checks Continue Wellbutrin XL to 450mg daily; (increased this admission) Patient agrees and has tolerated lower doses; wants to see if this can work or not Continue Seroquel 50 mg q.h.s. ECT # 1 on 11/01/21 ECT #2 on 11/03/21 ECT #3 on 11/06/21 ECT #4 on 11/08/21 PENDING ECT #5 for 11/10/21 NPO after midnight for day to day details... Hospital course: 10/26 Patient remains depressed and has been in bed all day. Agrees to increased Wellbutrin and will still consider T MS. She is it ambivalent about all treatment however and talks about discharging tomorrow 10/27 remains depressed; patient is open to ECT as she does not think that she is stable enough to go home and get herself to T MS daily 11/02 remains depressed but a little more outward; skeptical about ECT (and wellbutrin) but will continue 11/05/21- Coverage- continue plan of care. 11/06 affect a little brighter. Patient says she thinks her depression is a little better as well; she also says she can not think of more clearly. She is willing to remain on the unit for another ECT session but would like to discharge home and do it as an outpatient following this Saturday. Agrees that perhaps Wellbutrin is helping 11/07 patient agrees to remain for ECT tomorrow however wants to discharge by . Egg Sorter agrees that she is stable, not in imminent risk for harm to self or others and is okay to go home if she wants to. She says she will continue ECT as an outpatient. Egg Sorter however does encourage her to remain on the unit little longer so that she can continue getting ECT as she has some ambivalence about continuing the course however she remains pretty sure she wants to discharge. 11/08 mood remains improved, anxiety down and she feels she has more clear thinking. Wants to continue ECT but likely as an outpatient. No SI. Unclear if improvement is due to Wellbutrin or ECT or both 11/09 patient remains with better mood, no SI in feels that she is progressing back to her regular self. She would like to discharge home tomorrow after ECT and continue ECT as an outpatient. She is not sure she will do more than 6 total but right now agrees to be scheduled for up to 8 total sessions. She wants to continue with current medication regimen and denies any side effects. Patient says she is sleeping and eating well. Patient is not in imminent risk for harm to self or others and her request for discharge honored. Past medication trials: Zoloft: maybe a little helpful Trazodone Citalopram: No effect Paxil: Unclear if helpful; patient did not want to go higher; Patient reports horrible delirium when getting off it Fluoxetine: No effect Wellbutrin: Some irritability when titrated Ritalin/Adderall: No positive effect; increased anxiety Depakote; no effect Lamictal; maybe lowered irritability but patient stopped it not wanting to take it further Risperdal: No effect Zyprexa: Weight gain, no effect Abilify: No effect Never tried: [place], mirtazapine, TCAs, MAOI's, ECT, TMS, I spent minutes with the patient and/or on the patient floor today, greater than?50% of which was spent counseling/coordinating care. Patient educated on: diagnosis, medication risk/benefits and ECT Informed Consent: understands Reason for contiued inpatient stay Substantial Risk for: stable for discharge
[2021-11-09 13:43] VITALS: BMI 24.3
[2021-11-09 20:13] VITALS: BP 117/64; PULSE 85; RESP 18; TEMP 36.7; O2SAT 96
[2021-11-09] MEDS: Ibuprofen 400 MG TABLET PO (20:17)
[2021-11-09] MEDS: traZODone HCL 50 MG TABLET PO (21:05)
[2021-11-09] MEDS: QUEtiapine Fumarate 50 MG TABLET PO (21:05)
[2021-11-10] VITALS (9 sets, daily range): BP systolic 92–156; BP diastolic 42–93; PULSE 65–88; RESP 13–18; TEMP 28.3–36.7; O2SAT 95–100
--- NOTE | 2021-11-10 06:50 | HO.ANESPROP2 ---
FORMERLY [facility] Active Problems Active Problems: All Active Problems (Updated 10/31/21 @ 12:06 by Man Koch MD) Preoperative cardiovascular examination (Acute) MDD (major depressive disorder), recurrent episode, severe (Acute) Depression (Acute) Past Medical History Medical History MDD (major depressive disorder), recurrent episode, severe Family History Family history of problems with anesthesia: No Surgical History History of Problems with Anesthesia: No Social History Social History Household Members: None Housing: Condominium Do you presently have visiting nurse or other home services: No Patient Tobacco Use Status: Never used Tobacco e-Cigarette/Vaping Use: Never Used Second Hand Smoke Exposure: No service: No Sexual orientation: Did not discuss Meds Allergies Allergy/AdvReac Type Severity Reaction Status Date / Time No Known Allergies Allergy Verified 10/23/21 17:36 Active Medications: Current Medications Acetaminophen (Acetaminophen 325 Mg Tablet) 650 mg PO Q6H PRN PRN Reason: Headache/Pain Mild Scale (1-3) Last Admin: 11/08/21 08:37 Dose: 650 mg Acetaminophen (Acetaminophen 325 Mg Tablet) 650 mg PO ONCE PRN PRN Reason: Pain, Mild (Pain Scale 1-3) Acetaminophen (Acetaminophen 325 Mg Tablet) 650 mg PO ONCE PRN PRN Reason: Pain, Mild (Pain Scale 1-3) Al Hydroxide/Mg Hydroxide (Magnesium Hydrox/Alum Hydrox 30 Ml Oral.Susp) 30 ml PO Q6H PRN PRN Reason: Heartburn/Nausea Bupropion HCl (Bupropion Hcl Xl 150 Mg Tab.Er.24h) 450 mg PO DAILY LANDY Last Admin: 11/09/21 08:14 Dose: 450 mg Hydroxyzine HCl (Hydroxyzine Hcl 25 Mg Tablet) 25 mg PO BID PRN PRN Reason: Anxiety Lactated Ringer's (Lr) 1,000 mls @ 50 mls/hr IVCONT .Q20H LANDY Ibuprofen (Ibuprofen 400 Mg Tablet) 400 mg PO QID PRN PRN Reason: Pain, Moderate (Pain Scale 4-6 Last Admin: 11/09/21 20:17 Dose: 400 mg Magnesium Hydroxide (Milk Of Magnesia 30 Ml Oral.Susp) 30 ml PO DAILY PRN PRN Reason: Constipation Last Admin: 11/09/21 08:20 Dose: 30 ml Ondansetron HCl (Ondansetron Hcl 4 Mg/2 Ml Vial) 4 mg IVPUSH ONCE PRN PRN Reason: Nausea and Vomiting Quetiapine Fumarate (Quetiapine Fumarate 50 Mg Tablet) 50 mg PO BEDTIME LANDY Last Admin: 11/09/21 21:05 Dose: 50 mg Quetiapine Fumarate (Quetiapine Fumarate 50 Mg Tablet) 50 mg PO DAILY PRN PRN Reason: Anxiety Trazodone HCl (Trazodone Hcl 50 Mg Tablet) 50 mg PO BEDTIME PRN PRN Reason: Insomnia Last Admin: 11/09/21 21:05 Dose: 50 mg Home Medications Medication Instructions Recorded Confirmed Last Taken Type bupropion HCl 150 mg 24 hr tablet, 150 mg PO QAM 10/23/21 10/23/21 Unknown History extended release hydroxyzine HCl 25 mg tablet 25 mg PO BID PRN Anxiety 10/23/21 10/23/21 Unknown History quetiapine 50 mg tablet 50 mg PO BEDTIME 10/23/21 10/23/21 Unknown History quetiapine 50 mg tablet 50 mg PO DAILY PRN Anxiety 10/23/21 10/23/21 Unknown History Exam Exam Date and Time: November 10, 2021 0650 Height,Weight and Vital Signs: Height 5 ft 6 in Weight 68.3 kg Last Vital Signs Temp 97.2 F 11/10/21 06:42 Pulse 68 11/10/21 06:42 Resp 18 11/10/21 06:42 BP 92/42 L 11/10/21 06:42 Pulse Ox 95 11/10/21 06:42 O2 Del Method 11/10/21 06:42 O2 Flow Rate 2 11/08/21 07:34 Pertinent Lab Results Pertinent Lab Results: Laboratory Tests 10/23/21 10/23/21 10/23/21 16:05 16:06 17:50 WBC 8.3 RBC 4.90 Hgb 15.3 Hct 44.9 MCV 91.6 MCH 31.2 MCHC 34.1 RDW 11.5 Plt Count 292 MPV 9.6 Immature Gran % (Auto) 0.2 Neut % (Auto) 64.6 Lymph % (Auto) 28.7 [place] % (Auto) 5.2 Eos % (Auto) 0.8 Baso % (Auto) 0.5 Lymph # (Auto) 2.4 [place] # (Auto) 0.4 Eos # (Auto) 0.1 Baso # (Auto) 0.0 Abs Immat Gran (auto) 0.02 Absolute Neuts (auto) 5.3 Absolute Nucleated RBC 0.000 Nucleated RBC % (auto) 0.0 Sodium Potassium Chloride Carbon Dioxide Anion Gap BUN Creatinine Estim Creat Clear Calc Estimated GFR Random Glucose Calcium Magnesium Total Bilirubin AST ALT Alkaline Phosphatase Total Protein Albumin Vitamin B12 Folate TSH Free T4 Urine Opiates Screen Not Detected Urine Fentanyl Screen Not Detected Ur Barbiturates Screen Not Detected Ur Phencyclidine Scrn Not Detected Ur Amphetamines Screen Not Detected U Benzodiazepines Scrn Not Detected Urine Cocaine Screen Not Detected U Marijuana (THC) Screen Not Detected Ethyl Alcohol COVID-19 ([facility]ISON) Negative COVID-19 [place] Com See Note 10/23/21 10/23/21 10/25/21 17:50 17:50 08:04 WBC RBC Hgb Hct MCV MCH MCHC RDW Plt Count MPV Immature Gran % (Auto) Neut % (Auto) Lymph % (Auto) [place] % (Auto) Eos % (Auto) Baso % (Auto) Lymph # (Auto) [place] # (Auto) Eos # (Auto) Baso # (Auto) Abs Immat Gran (auto) Absolute Neuts (auto) Absolute Nucleated RBC Nucleated RBC % (auto) Sodium 139 Potassium 4.0 Chloride 101 Carbon Dioxide 30 H Anion Gap 12 BUN 14 Creatinine 0.84 Estim Creat Clear Calc 71.7 Estimated GFR > 60 Random Glucose 135 H Calcium 10.3 H Magnesium 2.2 Total Bilirubin 0.7 AST 17 ALT 19 Alkaline Phosphatase 78 Total Protein 7.6 Albumin 4.6 Vitamin B12 Folate TSH 1.35 Free T4 0.95 Urine Opiates Screen Urine Fentanyl Screen Ur Barbiturates Screen Ur Phencyclidine Scrn Ur Amphetamines Screen U Benzodiazepines Scrn Urine Cocaine Screen U Marijuana (THC) Screen Ethyl Alcohol < 10 COVID-19 ([facility]ISON) COVID-19 UNX 10/25/21 08:04 WBC RBC Hgb Hct MCV MCH MCHC RDW Plt Count MPV Immature Gran % (Auto) Neut % (Auto) Lymph % (Auto) [place] % (Auto) Eos % (Auto) Baso % (Auto) Lymph # (Auto) [place] # (Auto) Eos # (Auto) Baso # (Auto) Abs Immat Gran (auto) Absolute Neuts (auto) Absolute Nucleated RBC Nucleated RBC % (auto) Sodium Potassium Chloride Carbon Dioxide Anion Gap BUN Creatinine Estim Creat Clear Calc Estimated GFR Random Glucose Calcium Magnesium Total Bilirubin AST ALT Alkaline Phosphatase Total Protein Albumin Vitamin B12 874 Folate 13.6 TSH Free T4 Urine Opiates Screen Urine Fentanyl Screen Ur Barbiturates Screen Ur Phencyclidine Scrn Ur Amphetamines Screen U Benzodiazepines Scrn Urine Cocaine Screen U Marijuana (THC) Screen Ethyl Alcohol COVID-19 ([facility]) COVID-19 Clin Com Airway Mallampati Class: II TM Dist: >3cm Neck ROM: Full Heart: rrr Lungs: cta Assessment and Plan Assessment Anesthesia Assessment: Anesthesia Plan Discussed and Chart Reviewed Final Anesthetic Review Family History of Problems with Anesthesia: No History of Problems with Anesthesia: No NPO: Yes ASA Class: III Patient Risk: Intermediate Procedure Risk: Intermediate Anesthetic Plan Anesthetic Plan: GA Disposition: Standard PACU
--- NOTE | 2021-11-10 06:52 | MHC.SHP ---
Pre-Procedural Eval Section A Date of Service: 11/10/21 The patient is an INPATIENT: No Changes since office visit: No Cold of Flu in the past 2 weeks, No New Medical Problems, No Changes in Medication and No Patient answered all questions The History & Physical has been completed within 30 days and I have reviewed it.: Yes Section B Chief Complaint: Depression,SI Allergies: Allergies Allergy/AdvReac Type Severity Reaction Status Date / Time No Known Allergies Allergy Verified 10/23/21 17:36 Plan I have reviewed the history and physical and performed a pertinent physical examination on my patient. No changes have occurred unless specified.
--- NOTE | 2021-11-10 08:18 | HO.ECTPROC ---
ECT Procedure Note Diagnosis/Treatment Date of Service: 11/10/21 Diagnosis: Major Depressive Disorder Previous ECT Date: 11/08/21 Treatment: Maintenance Interval Clinical Notes: The patient reported stll dysphoria but no safety concerns. No side effects with previous ECT. ECT Settings Device: THYMATRON DGx Electrode Placement: Right Unilateral Program/Pulse Width: 0.50 Energy Percent: 80 Seizure Duration By EEG (in seconds): 36 By Motor Observation (in seconds): 24 Medications Administration General Anesthetic: Etomidate (14) Muscle Relaxant: Succinylcholine (80) Ancillary Medications Analgesics: Torodol - Pre ECT Anti-emetics: Zofran - Pre ECT Airway Management Airway Management: Bag Mask Ventilation Treatment Recommendations No Changes Recommended: No change Pt Tolerated Procedure w/o Issue: Yes
[2021-11-10] MEDS: buPROPion HCl XL 150 MG TAB.ER.24H 450 MG PO (08:36)
[2021-11-10] MEDS: Acetaminophen 325 MG TABLET 650 MG PO (08:37)
--- NOTE | 2021-11-10 09:46 | P.DS_ITS ---
DS: Providers Provider Date of Service: 11/10/21 Date of admission: 10/24/21 17:24 Date of discharge: 11/10/21 Primary care physician: Dacia Santos MD Attending physician on admission: Abiodun Green Consults: 10/27/21 13:18 Consult to Hospitalist Routine Consulting Provider: Hospitalist Reason For Exam: clearance for ECT Attending physician on discharge: Abiodun Green DS: Diagnosis Discharge Diagnosis (1) MDD (major depressive disorder), recurrent episode, severe: Status: Acute DS: Medications Discharge Medications Home Medications: Previous Rx's Medication Instructions Recorded bupropion HCl 150 mg 24 hr tablet, 150 mg PO QAM 30 days #30 tabs 11/10/21 extended release bupropion HCl 300 mg 24 hr tablet, 300 mg PO QAM 30 days #30 tabs 11/10/21 extended release hydroxyzine HCl 25 mg tablet 25 mg PO BID PRN Anxiety 30 days 11/10/21 #30 tabs quetiapine 50 mg tablet 50 mg PO BEDTIME 30 days #30 tabs 11/10/21 quetiapine 50 mg tablet See Rx Instructions .Route 11/10/21 .COMPLEX PRN Anxiety 30 days #30 tabs trazodone 50 mg tablet 50 mg PO BEDTIME PRN Insomnia 30 11/10/21 days #30 tabs Mental Status Exam Mental Status Exam Narrative: Pt is alert and oriented; behavior is cooperative, calm, sometimes distracted; patient is not in distress; dressed in casual cloths, hair combed, adequate hygiene; mood is described as a little better and affect congruent, brighter; mostly adequate eye contact; intermittent grimace but a little less. Speech is normal volume and rate; no psychomotor retardation present; thought process is goal directed but at times brings up off-topic subjects; Thought content is on her job, treatment, finance trouble; TC otherwise pertinent to relevant topics; no overt delusional content or paranoid ideations or grandiosity expressed; no SI; no HI. There is no evidence of perceptual disturbance and denies AVH;? Patients insight and judgment are impaired but likely close to baseline. Data Imaging Diagnostic Imaging Impressions Foot X-Ray 10/29/21 10:18 IMPRESSION: Normal left foot. DS: Summary Hospital Course Hospital Course: Patient is a 56-year-old female with long history of refractory depression, poorly treated with past medication trials who presents for worsening depression in the face of her mother going to a detention.? Formulation: -patient reports depression for decades which she says has never been treated very well with medication.? She currently presents as severely depressed with psychomotor retardation.? Patient has some minimal support in the community including a therapist.? Regarding family psychiatric history patient says that her father was very quiet which leans towards possible genetic contribution.? Patient's thought process is a little distracted and she sometimes brings up thoughts unrelated to fiction writer's question; at this time, fiction writer interprets this as due to diminished concentration, distractedness and negative symptoms of dep ression.? Discussed case with patient's former outpatient psychiatrist Dr. Thomson who wonders if patient may ASD or be schizotypal; patient has odd behavior at baseline.? Numerous medication trials including Depakote and atypicals.? Patient may have had some psychotic symptoms in the past; has gotten paranoid at times.? Patient had episode where she struggle to interact with her ailing and demented father appropriately, trying to get him to dance and getting angry and swearing at him. Hospital course in brief: Patient was depressed with intermittent passive SI on admission. Her Wellbutrin was increased to 450 mg which seem to help her mood some. Patient agreed to start ECT. Initially, patient stayed in bed all day. However as her mood improved she was out in the milieu with brighter affect and more sociable. She remained with appropriate safe behaviors and in good impulse control, continuing to deny any SI. Patient's mood improved and SI fully resolved. Her anxiety also diminished and she felt much more clear minded. By the end of her 5th ECT treatment she felt she was close to being back to her regular self. Patient wanted to discharge on Saturday after ECT and do her 6th EC T as an outpatient. She will decide whether not to continue after that. Patient was future oriented, planning to go back to work. Patient was not in imminent risk for harm to self or others and her request for discharge honored. Past medication trials: Zoloft: maybe a little helpful Trazodone Citalopram: No effect Paxil: Unclear if helpful; patient did not want to go higher; Patient reports horrible delirium when getting off it Fluoxetine:? No effect Wellbutrin:? Some irritability when titrated Ritalin/Adderall: No positive effect; increased anxiety Depakote; no effect Lamictal; maybe lowered irritability but patient stopped it not wanting to take it further Risperdal: No effect Zyprexa: Weight gain, no effect Abilify: No effect Time spent discussing smoking cessation with patient: 3 to 10 minutes Status at Discharge Functional status at discharge: independent ambulation Overall status at discharge: patient is progressing back to baseline Time Spent with Patient Time attestation: Total time spent providing and/or coordinating discharge services: Time spent: Less than 30 minutes Discharge Plan Discharge Patient Disposition: Home, Self-Care Discharge Diagnosis: MDD, recurrent, severe w/out psychotic symptoms in partial remisson Referrals: Psychiatry: Cuauhtemoc Green [Other] - 12/13/21 2:00 pm (This is a Telehealth appointment) Therapy: Joanie Solitario [Other] - 11/15/21 9:00 am (This is a Telehealth appointment ) Dacia Santos MD [Primary Care Provider] - 1 Week (office states they will call Sheree with an appointment.) Discharge Medications: New bupropion HCl 300 mg tablet extended release 24 hr 300 mg PO QAM 30 Days Qty: 30 1RF Rx Instructions: take daily with 150mg tab trazodone 50 mg Tablet 50 mg PO BEDTIME PRN (Reason: Insomnia) 30 Days Qty: 30 0RF Continued hydroxyzine HCl 25 mg Tablet 25 mg PO BID PRN (Reason: Anxiety) 30 Days Qty: 30 1RF bupropion HCl 150 mg Tablet Extended Release 24 Hr 150 mg PO QAM 30 Days Qty: 30 1RF Rx Instructions: take daily with 300mg tab quetiapine 50 mg Tablet 50 mg PO BEDTIME 30 Days Qty: 30 1RF Rx Instructions: take 1-2 tabs at bedtime Changed quetiapine 50 mg Tablet See Rx Instructions .ROUTE .COMPLEX PRN (Reason: Anxiety) 30 Days Qty: 30 1RF Rx Instructions: take 1/2 to 1 tab daily as needed for anxiety Discharge Orders: Discharge Order (Routine); Ordered 11/10/21 Ordered By: Bishop Matias Diet: regular diet Activity on Discharge: As tolerated Stand Alone Forms: Patient Portal Discharge page Care Plan Goals: Continue ECT: Saturday11/13/21 arrive@ 6AM Saturday11/15/21 arrive@ 6AM Saturday11/17/21 arrive@ 8AM * nothing to eat or drink after midnight the day of ECT Maintain mood and safe behaviors Take medications as prescribed Practice coping skills Continue with outpatient providers and reach out to them as needed Health Concerns: Mood stability and behaviors Plan of Treatment: Continue ECT MWF: Saturday11/13/21 arrive@ 6AM Saturday11/15/21 arrive@ 6AM Saturday11/17/21 arrive@ 8AM * nothing to eat or drink after midnight the day of ECT Follow up with your PCP, psychiatric provider and other outpatient providers regarding above concerns Take medications as prescribed Assessment: Risk assessment at time of discharge:? Patient was interviewed prior to discharge and found to be fully oriented and without any SI or HI. Patient has insight and demonstrates good judgment in terms of wanting to pursue treatment. Patient is not in imminent risk of harm to self or others and has a safety plan that includes presenting to the closest ER or calling 911 if feeling unsafe.? Patient has been observed closely by nursing and unit staff throughout admission ; patient has not engaged in any behaviors that suggest dangerousness to self or others and has demonstrated appropriate behaviors and impulse control
[2021-11-10] MEDS: Milk of Magnesia 30 ML ORAL.SUSP PO (14:44)
== END 2021-11-10 14:30 | disposition home or self-care (01) | DRG 885 ==
LOC: HO.ED 10-24 15:03 → HO.PM5 10-24 17:38
PROVIDERS: Physician Assistant; Psychiatry & Neurology Psychiatry; Registered Nurse; Admitting Provider Psychiatry & Neurology Psychiatry; Emergency Provider Emergency Medicine; PCP Internal Medicine; Visit Provider Psychiatry & Neurology Psychiatry
PROC: (CPT 90870; principal; 2021-11-01 16:30)
PROC: GZB4ZZZ Other Electroconvulsive Therapy (ICD-10-PCS; CPT 90870; principal; 2021-11-03 07:00)
DX: F33.2 Major depressive disorder, recurrent severe without psychotic features (principal); R45.851 Suicidal ideations; Z20.822 Contact with and (suspected) exposure to COVID-19; Z79.899 Other long term (current) drug therapy
CPT/HCPCS: 36415; 73630; 80053; 80307; 82077; 82607; 82746; 83735; 84439; 84443; 85025; 87635; 90870; 93005; 99285; J0330; J1885; J2405